=== PATIENT | female | born 1950 | race Caucasian/White ===

== ENCOUNTER 2017-03-27 05:01 | Inpatient (IN) | payer OTHER ==
[2017-03-16 14:07] VITALS: Ht 163.8 cm; Wt 121.4 kg
--- NOTE | 2017-03-16 14:45 | PAT Medication Instructions ---
Service Date Mar 16, 2017. Current Home Medication List Aripiprazole (Abilify), 5 MG PO QAM Aspirin (Aspirin), 81 MG PO QAM B-Complex Vitamins (Vitamin B Complex), 1 TAB PO QAM Celecoxib (CeleBREX), 200 MG PO BID Cholecalciferol (Vitamin D3), 1 TAB PO QAM Escitalopram Oxalate (Lexapro), 30 MG PO QAM Furosemide (Lasix), 20 MG PO QAM Hydrocodone/Acetaminophen ([place] 10/325 Tab), 1 TAB PO Q6 PRN for Pain Lidocaine (Lidoderm Patch 5%), 1 PATCH UD Lisinopril (Zestril), 5 MG PO QAM Lorazepam (Ativan), 0.5 MG PO TID PRN for Anxiety Lutein (Lutein), 10 MG PO QAM Methylprednisolone (Medrol), 8 MG PO QAM Morphine Sulfate (Morphine Sulfate Er), 30 MG PO TID [place]-3 Fatty Acids ([place] 3), 1 CAP PO QAM Pregabalin (Lyrica), 150 MG PO BID Raloxifene Hcl (Evista), 60 MG PO QAM Tocilizumab (Actemra), 1 DOSE IV MONTHLY [Methotrexate Inj], 0.8 ML SQ WK [Verapamil], 180 MG PO QAM Medication Instructions For Your Scheduled Surgery Lidocaine (Lidoderm Patch 5%), 1 PATCH UD (avoid placement near surgical site) - Check with branch operation evaluation manager for instructions: [Methotrexate Inj], 0.8 ML SQ WK Tocilizumab (Actemra), 1 DOSE IV MONTHLY - Check with surgeon for instructions: Aspirin (Aspirin), 81 MG PO QAM Celecoxib (CeleBREX), 200 MG PO BID Raloxifene Hcl (Evista), 60 MG PO QAM - Hold the following medications starting 03/17/17: [place]-3 Fatty Acids ([place] 3), 1 CAP PO QAM - Hold the following medications the morning of surgery: Lisinopril (Zestril), 5 MG PO QAM Furosemide (Lasix), 20 MG PO QAM Lutein (Lutein), 10 MG PO QAM B-Complex Vitamins (Vitamin B Complex), 1 TAB PO QAM Cholecalciferol (Vitamin D3), 1 TAB PO QAM - Take the following medications the morning of surgery with a sip of water: Methylprednisolone (Medrol), 8 MG PO QAM Pregabalin (Lyrica), 150 MG PO BID [Verapamil], 180 MG PO QAM Lorazepam (Ativan), 0.5 MG PO TID PRN for Anxiety (if needed) Hydrocodone/Acetaminophen ([place] 10/325 Tab), 1 TAB PO Q6 PRN for Pain (okay to take up to 4 hours prior to surgery if needed) Morphine Sulfate (Morphine Sulfate Er), 30 MG PO TID (okay to take up to 4 hours prior to surgery if needed) Escitalopram Oxalate (Lexapro), 30 MG PO QAM Aripiprazole (Abilify), 5 MG PO QAM - Take the following medications as scheduled the night before surgery: Pregabalin (Lyrica), 150 MG PO BID Lorazepam (Ativan), 0.5 MG PO TID PRN for Anxiety (if needed) Hydrocodone/Acetaminophen ([place] 10/325 Tab), 1 TAB PO Q6 PRN for Pain (if needed) Morphine Sulfate (Morphine Sulfate Er), 30 MG PO TID If you have any questions please call us at [phone] or [phone] or [phone]
--- NOTE | 2017-03-16 15:27 | DIAGNOSTIC IMAGING REPORT ---
CERVICAL SPINE 2 OR 3 VIEWS HISTORY:66 yearsFemalePREOP, RHEUMATOID ARTHRITIS COMPARISON: Cervical spine radiographs 12/20/2013 TECHNIQUE: Neutral, flexion and extension lateral radiographs of the cervical spine were obtained. FINDINGS: There is 3 mm anterolisthesis of C3 on C4 and 2 mm anterolisthesis C4 on C5, both of which remain fixed in both flexion and extension views. There is no evidence of instability on these images. The bones are diffusely demineralized without evidence of acute fracture or dislocation. Multilevel advanced facet arthropathy and intervertebral disc space narrowing with endplate spurring is seen throughout the cervical spine. Intervertebral disc space narrowing is most pronounced at the C5-C6 and C6-C7 levels without significant change from comparison study dated 12/20/2013. There is no prevertebral soft tissue swelling or radiopaque foreign body. IMPRESSION: 1. No acute fracture or dislocation of the cervical spine. 2. 3 mm anterolisthesis of C3 on C4 and 2 mm anterolisthesis C4 on C5 remains fixed in both flexion and extension without evidence of instability on these images. 3. Multilevel advanced intervertebral disc space narrowing and facet arthropathy without significant change from prior study dated 12/20/2013. The above report was generated using voice recognition software. It may contain grammatical, syntax or spelling errors. Electronically signed by: Luis Wen 03/16/2017 3:26 PM Dictated Date/Time: 03/16/2017 3:21 PM
--- NOTE | 2017-03-16 15:27 | DIAGNOSTIC IMAGING REPORT ---
CHEST PREADMISSION(PA/LAT) CLINICAL HISTORY: Preoperative evaluation. COMPARISON STUDY: Chest radiograph April 03, 2013. FINDINGS: Right shoulder arthroplasty is noted. There is no pneumothorax or pleural effusion. Moderate elevation/eventration of the right hemidiaphragm is unchanged. Mild cardiomegaly is noted. No evidence of pulmonary edema. There is no consolidation. IMPRESSION: 1. No acute cardiopulmonary findings. 2. Mild cardiomegaly. Electronically signed by: Guillermo Donis M.D. 03/16/2017 3:26 PM Dictated Date/Time: 03/16/2017 3:20 PM
[2017-03-16 16:20] LABS: BASO % 0.3 %; BASO ABS # 0.03 K/uL (0-0.2); COMPLETE YES; EOS % 0.6 %; HEMATOCRIT 43.5 % (37-47); IG% 0.7 %; LYMPH % 10.7 %; LYMPH ABS # 1.09 K/uL (1.2-3.4); MEAN CELL VOLUME 96.2 fL (80-100); MEAN CORPUSCULAR HGB CONC 32.2 g/dl (32-36); MEAN PLATELET VOLUME 9.8 fL (7.4-10.4); MONO % 4.1 %; NEUT % 83.6 %; PLATELET COUNT 210 K/uL (130-400); RED BLOOD COUNT 4.52 M/uL (4.2-5.4); WHITE BLOOD COUNT 10.23 K/uL (4.8-10.8)
[2017-03-16 16:24] LABS: URINE APPEARANCE CLEAR (CLEAR); URINE BILIRUBIN NEG (NEG); URINE COLOR DK YELLOW; URINE EPITHELIAL CELL AUTO >30 /lpf (0-5); URINE NITRITE NEG (NEG); URINE SPECIFIC GRAVITY 1.025 (1.000-1.030); UROBILINOGEN NEG (NEG)
[2017-03-16 16:26] LABS: MANUAL MICROSCOPIC REQUIRED? NO; REVIEW REQ? NO
[2017-03-16 16:32] LABS: PARTIAL THROMBOPLASTIN RATIO 0.8; PROTHROMBIN TIME (PATIENT) 10.7 SECONDS (9.0-12.0)
[2017-03-16 16:33] LABS: CALCIUM 9.2 mg/dl (8.5-10.1); CREATININE 0.82 mg/dl (0.60-1.20); POTASSIUM 4.2 mmol/L (3.5-5.1)
[2017-03-27] VITALS (10 sets, daily range): BP systolic 94–167; BP diastolic 55–85; PULSE 86–125; TEMP 36.3–37.5; O2SAT 91–97
[~2017-03-27] VITALS: Ht 163.8 cm; Wt 121.4 kg
[~2017-03-27 05:01] MED LIST: ABL/5 PO; ASPI1TAB83 PO; B-COTAB18 PO; CHOL1000 PO; CLB/200 PO; ESCI1TAB10 PO; FURO-85 PO; HYDR-4383 PO; LISI5TAB3 PO; LORA-741 PO; LUTE10TA PO; METH1TAB81 PO; METHOTREXATE INJ SQ; MORP1TAB12 PO; NF656; OMEG12006 PO; PREG1CAP70 PO; RALO60TA12 PO; VERAPAMIL PO; [UNRECOGNIZED DRUG - CODE] IV
[2017-03-27] MEDS ORDERED: SODIUM CHLORIDE 0.9% 1000ML 1,000 ML IV SCH ×2 (06:00→12:12)
[2017-03-27] MEDS ORDERED: LACTATED RINGER'S 1000ML 1,000 ML IV SCH (06:00)
[2017-03-27] MEDS ORDERED: CEFAZOLIN 3000 MG/65 ML D5W IV SCH (06:00)
[2017-03-27] MEDS ORDERED: ATROPINE SULFATE 0.1 MG/ML 5ML SYR IV PRN (07:00)
[2017-03-27] MEDS ORDERED: DEXAMETHASONE SOD INJ 4 MG/ML VIAL IV PRN (07:00)
[2017-03-27] MEDS ORDERED: EpHEDrine SULFATE INJ 50 MG/ML AMP IV PRN (07:00)
[2017-03-27] MEDS ORDERED: HYDROmorphone INJ 1 MG/ML SYR IV PRN (07:00)
[2017-03-27] MEDS ORDERED: FENTANYL CITRATE INJ 50 MCG/1 ML 2 ML VIAL IV PRN (07:00)
[2017-03-27] MEDS ORDERED: PROMETHAZINE HCL INJ 12.5 MG in SODIUM CHLORIDE 0.9% 50ML 50 ML IV PRN ×2 (07:00→12:15)
[2017-03-27] MEDS ORDERED: ONDANSETRON INJ 2 MG/ML 2 ML VIAL IV PRN ×2 (07:00→12:15)
[2017-03-27] MEDS ORDERED: GELATIN SPONGE SZ 100 ONE ×4 (07:03→09:58)
[2017-03-27] MEDS ORDERED: BACITRACIN 50000 UNIT VIAL ONE (07:04)
[2017-03-27] MEDS ORDERED: THROMBIN FOR SOLN 20000 UNIT KIT ONE ×3 (07:04→09:49)
[2017-03-27] MEDS ORDERED: PROPOFOL IV EMULSION 10 MG/ML 20 ML VIAL IV ONE (07:05)
[2017-03-27] MEDS ORDERED: ROCURONIUM BROMIDE 10 MG/ML 5 ML VIAL ONE (07:05)
[2017-03-27] MEDS ORDERED: BUPIVACAINE/EPINEPHRINE 0.5% MPF 1:200,000 10 ML VIAL ONE (07:05)
[2017-03-27] MEDS ORDERED: LIDOCAINE HCL 2% 2 ML VIAL (20MG/ML) ONE (07:05)
[2017-03-27] MEDS ORDERED: LARYING-O-JET KIT (LTA) ONE ×2 (07:05)
[2017-03-27] MEDS ORDERED: ONDANSETRON INJ 2 MG/ML 2 ML VIAL ONE ×2 (07:05→10:40)
[2017-03-27] MEDS ORDERED: DEXAMETHASONE SOD INJ 4 MG/ML VIAL ONE (07:05)
[2017-03-27] MEDS ORDERED: MIDAZOLAM HCL 1 MG/ML 2ML VIAL ONE (07:06)
[2017-03-27] MEDS ORDERED: FENTANYL CITRATE INJ 50 MCG/1 ML 2 ML VIAL ONE ×4 (07:06→13:06)
--- NOTE | 2017-03-27 07:12 | History and Physical ---
History & Physical Date Mar 27, 2017. Chief Complaint Back and lower extremity difficulty paresthesias numbness and tingling inability to ambulate distances inability to stand upright History of Present Illness The patient is a 66 year old female with complaints of back and lower extremity difficulties. Numbness tingling paresthesias 80 imbalance and difficulty standing upright Past Medical/Surgical History Medical history rheumatoid arthritis depression hypertension and asthma. Surgical history reverse total shoulder bilateral knee replacements reduction internal fixation of the ankle lumbar stenosis and laminectomy breast biopsies Additional History Hepatic Disease: No Endocrine Disorder: No Kidney Disease: No Hypertension: Yes Heart Disease: No Bleeding Tendencies: No Infectious Diseases: No Other: Depression and asthma Allergies Coded Allergies: No Known Allergies (Verified , `, 03/27/17) Home Medications Scheduled Aripiprazole (Abilify), 5 MG PO QAM Aspirin (Aspirin), 81 MG PO QAM B-Complex Vitamins (Vitamin B Complex), 1 TAB PO QAM Celecoxib (CeleBREX), 200 MG PO BID Cholecalciferol (Vitamin D3), 1 TAB PO QAM Escitalopram Oxalate (Lexapro), 30 MG PO QAM Furosemide (Lasix), 20 MG PO QAM Lidocaine (Lidoderm Patch 5%), 1 PATCH UD Lisinopril (Zestril), 5 MG PO QAM Lutein (Lutein), 10 MG PO QAM Methylprednisolone (Medrol), 8 MG PO QAM Morphine Sulfate (Morphine Sulfate Er), 30 MG PO TID [place]-3 Fatty Acids ([place] 3), 1 CAP PO QAM Pregabalin (Lyrica), 150 MG PO BID Raloxifene Hcl (Evista), 60 MG PO QAM Tocilizumab (Actemra), 1 DOSE IV MONTHLY [Methotrexate Inj], 0.8 ML SQ WK [Verapamil], 180 MG PO QAM Scheduled PRN Hydrocodone/Acetaminophen ([place] 10/325 Tab), 1 TAB PO Q6 PRN for Pain Lorazepam (Ativan), 0.5 MG PO TID PRN for Anxiety Physical Examination Skin: warm/dry Eyes: normal inspection ENT: normal ENT inspection Head: normocephalic Neck: supple, trachea midline Respiratory/Chest: lungs clear Cardiovascular: regular rate, rhythm Abdomen / GI: normal bowel sounds Extremities: normal inspection Addiitonal Comments: Pain with palpation over L4 5 and L5-S1 focally to getting her up for a position. Action. Pain with straight leg raising 5 over 5 strength in the lower extremities Diagnosis Lumbar spondylosis lumbar spondylolisthesis L3 4 L4 5 and degenerative scoliosis spine L1 down to the sacrum. ASA Classification: ASA Class III Plan of Treatment Laminectomy and fusion L1 through L5
[2017-03-27] MEDS ORDERED: ALBUMIN HUMAN 5% 12.5 GM/250 ML VIAL IV ONE (07:15)
[2017-03-27] MEDS ORDERED: VANCOMYCIN HCL 1000MG/20ML VIAL ONE (07:16)
[2017-03-27] MEDS ORDERED: KETAMINE HCL INJ 50 MG/ML 10 ML VIAL ONE (07:17)
[2017-03-27] MEDS ORDERED: PROMETHAZINE HCL INJ 25 MG in SODIUM CHLORIDE 0.9% 50ML 50 ML IV ONE (07:30)
[2017-03-27] MEDS ORDERED: HYDROmorphone INJ 2 MG/ML SYR/VIAL ONE (07:55)
[2017-03-27] MEDS ORDERED: EpHEDrine SULFATE 50MG/5ML SYR ONE (08:49)
[2017-03-27] MEDS ORDERED: HYDROCORTISONE SOD SUCCINATE 100 MG/2 ML VIAL ONE (08:49)
[2017-03-27] MEDS ORDERED: CEFAZOLIN SOD 1 GM VIAL ONE (11:30)
--- NOTE | 2017-03-27 11:39 | DIAGNOSTIC IMAGING REPORT ---
INTRAOPERATIVE LUMBAR SPINE SINGLE VIEW CLINICAL HISTORY: L1-5 LAMINECTOMY COMPARISON STUDY: None FINDINGS: Accurate numbering is difficult due to the limited [id number] and intraoperative fluoroscopic technique. There are pedicle screws at 5 consecutive levels with adjoining spinal rods. I suspect but am not certain this are the L1-L5 levels. A single intraoperative lateral view is provided for interpretation. 12 seconds of fluoroscopic time was utilized IMPRESSION: Intraoperative fluoroscopic spot images as described above. Electronically signed by: Chase Stahl M.D. 03/27/2017 11:38 AM Dictated Date/Time: 03/27/2017 11:35 AM
[2017-03-27] MEDS ORDERED: ESMOLOL HCL 10 MG/ML 10 ML VIAL ONE (11:40)
[2017-03-27] MEDS ORDERED: NALOXONE HCL 0.4 MG/1 ML VIAL/CARP IV PRN (12:15)
[2017-03-27] MEDS ORDERED: LORAZEPAM INJ 1 MG in SYRINGE 0 ML IV PRN (12:15)
[2017-03-27] MEDS ORDERED: METHOTREXATE SQ SCH (12:15)
[2017-03-27] MEDS ORDERED: LORAZEPAM 1 MG TAB PO PRN (12:15)
[2017-03-27] MEDS ORDERED: ACETAMINOPHEN 325 MG TAB PO PRN (12:15)
[2017-03-27] MEDS ORDERED: MAGNESIUM HYDROXIDE SUSP 30 ML UDC PO PRN (12:15)
[2017-03-27] MEDS ORDERED: METOCLOPRAMIDE HCL INJ 5 MG/ML 2 ML VIAL IV PRN (12:15)
[2017-03-27] MEDS ORDERED: LORAZEPAM 0.5 MG TAB PO PRN (12:15)
--- NOTE | 2017-03-27 12:20 | [facility] Operative Report ---
Operative Report Operative Date Mar 27, 2017. Pre-Operative Diagnosis Lumbar spondylosis lumbar spondylolisthesis L3 4 L4 5 and degenerative scoliosis spine L1 down to the sacrum. Post-Operative Diagnosis Lumbar spondylosis lumbar spondylolisthesis L3 4 L4 5 and degenerative scoliosis spine L1 down to the sacrum. Procedure(s) Performed L1-L2, L2-L3, L3-L4, L4-L5 Laminectomy and Fusion Surgeon Dr Willard Field Interviewer Surgeon(s) Juan Gomez PA-C Estimated Blood Loss 1400mL Findings Severe scoliosis severe lumbar stenosis two-level spondylolisthesis Sagittal imbalance Comorbidities morbid obesity with a BMI close to 50. So prior surgery were significant amount of revision strategies used. Specimens None as per surgeon Complication(s) None Disposition Recovery Room / PACU Indications Indications: Inability to ambulate more than 75 feet severe back pain and lower extremity difficulty. No bowel or bladder incontinence Description of Procedure Description of procedure Patient was taken to the operating room a general intubated anesthetic provided patient. He was carefully placed prone on the Alexander table off soft tissue protected. The eyes were also protected. Prior to turning we put in a Jarrett catheter. We scrubbed with Betadine prepped with ChloraPrep draped across sterile. Commence with surgery: We made a skin incision from L1 down to the sacrum. Decking soft tissue in the same plane significant amount soft tissue bleeding. We use our best efforts to have all blood vessels cauterized. We had use revision strategies and the pressure off of L5-S1 L4 5 L3 4. We did not jeopardize the nerve roots or the dura. Is able to decompress the spinal canal from L1 to L5 incident modest R moderate amount of epidural bleeding present Gavigan bleeding from bone surfaces. Then instrumented the spine and corrected her scoliotic curvature is anatomic landmarks. A C-arm guidance. The safely get pedicle screws from L1 to L5 To do complete facetectomies at L4 5 L3 4 which did not correction. We then rotated the scoliosis into lordosis honestly. He tighten down the left side than the right side. Our implants used by the [email or web address] we had near anatomic reduction reduction of the spondylolisthesis at 2 levels. Then irrigated thoroughly with approximately 1 L of fluid bone grafted the transverse processes entire area. 1 g of vancomycin powder in the bone graft we also used one gram of vancomycin powder and the soft tissue structures. Patient was closed in layers with 1 Vicryl to all and stable gone on the skin over Hemovac drain Jaime sterile dressings applied to the wound patient returned supine extubated to PACU stable. Implants used by the [employer] . Sponge and needle count correct at the close of procedure allograft no interoperative complications Surgeon Los Franklin D.O. some Juan Sandoval PAC thank you I attest to the content of the Intraoperative Record and any orders documented therein. Any exceptions are noted below.
--- NOTE | 2017-03-27 12:54 | Anesthesiology Progress Note ---
Anesthesia Post Op Note Date & Time Mar 27, 2017 at 12:53 Vital Signs Pain Intensity: 0 Vital Signs Past 12 Hours Date Time Temp Pulse Resp B/P (MAP) Pulse Ox O2 Delivery O2 Flow Rate FiO2 03/27/17 12:50 122 16 106/66 94 Oxymask 3 03/27/17 12:40 112 16 110/61 94 Oxymask 10 03/27/17 12:30 108 16 100/56 95 Oxymask 10 03/27/17 12:21 36.4 97 16 97/55 94 Oxymask 10 03/27/17 05:48 36.7 86 20 167/85 94 Room Air Notes Mental Status: alert / awake / arousable, participated in evaluation Pt Amnestic to Procedure: Yes Nausea / Vomiting: adequately controlled Pain: adequately controlled Airway Patency, RR, SpO2: stable & adequate BP & HR: stable & adequate Hydration State: stable & adequate Anesthetic Complications: no major complications apparent Still requiring supplemental O2 to maintain sats. Repeat CBC ordered. S/p 1unit PRBCs, otherwise, doing well.
[2017-03-27] MEDS ORDERED: HYDROmorphone HCL 0.5MG/ML 50 ML CASSETTE ONE (13:00)
[2017-03-27 13:42] LABS: HEMATOCRIT 39.2 % (37-47); MEAN CELL VOLUME 97.3 fL (80-100); MEAN CORPUSCULAR HEMOGLOBIN 31.3 pg (25-34); MEAN PLATELET VOLUME 9.7 fL (7.4-10.4); PLATELET COUNT 274 K/uL (130-400); RED BLOOD COUNT 4.03 M/uL (4.2-5.4); WHITE BLOOD COUNT 25.05 K/uL (4.8-10.8)
[2017-03-27 13:54] LABS: MEAN CORPUSCULAR HGB CONC 32.1 g/dl (32-36)
[2017-03-27] MEDS: SODIUM CHLORIDE 0.9% 1000ML 1,000 ML IV SCH ×2 (14:03→23:44)
[2017-03-27] MEDS ORDERED: HYDROCORTISONE SOD SUCCINATE 100 MG/2 ML VIAL IV SCH (14:30)
--- NOTE | 2017-03-27 14:35 | Medical Consult ---
Consultation Date of Consultation: Mar 27, 2017. Attending Physician: Los Willard DO Reason for Consultation: Medical management History of Present Illness This is a 66 yo F with PMHx of Rheumatoid arthritis, hypertension, asthma, and depression. She presents for an elective L1-L5 laminectomy of the spine by Dr. Willard on 03/27/17. The patient is lethargic but is easily awoken upon my exam. She wakes up and answers my questions appropriately, follows commands, and denies any chest pain, shortness breath, abdominal pain, but does report that she is having some minor lower back pain. She does not wear any oxygen at baseline. She is able to wiggle her toes and bend her knees on command. I cannot obtain a detailed history from her regarding her medications due to lethargy. Per anesthesiology note the patient received 1 unit of blood intraoperatively and albumin with a total of 500 mL for low blood pressure. Currently her BP is 100/60s. The patient lost 1.4 L of blood during surgery. She is on chronic steroids, Medrol 8 mg by mouth every morning so she has been started on stress dosing with dexamethasone 10 mg every 8 hours here. Past Medical/Surgical History Hypertension Rheumatoid arthritis Asthma Depression Lumbar spondylosis and spondylolisthesis Degenerative scoliosis of the spine from L1 to sacrum Social History Smoking Status: Never Smoker Smokeless Tobacco Use: No Alcohol Use: none Drug Use: none Marital Status: single Housing Status: lives alone Allergies Coded Allergies: No Known Allergies (Verified , `, 03/27/17) Current Inpatient Medications Current Inpatient Medications Medications (Trade) Dose Ordered Sig/Jailene Route Start Time Stop Time Status Last Admin Dose Admin Cefazolin Sodium 65 ml @ 100 mls/hr PREOP IV 03/27/17 06:00 03/27/17 18:00 Diphenhydramine HCl (Benadryl Cap) 25 mg Q6H PRN PO 03/27/17 12:15 04/26/17 12:14 Magnesium Hydroxide (Milk Of Magnesia Susp) 30 ml DAILY PRN PO 03/27/17 12:15 04/26/17 12:14 Bisacodyl (Dulcolax Supp) 10 mg DAILY PRN TN 03/28/17 06:00 04/27/17 05:59 Bisacodyl (Dulcolax Tab) 5 mg DAILY PRN PO 03/28/17 06:00 04/27/17 05:59 Polyethylene (Miralax Powder Packet) 17 gm DAILY PO 03/28/17 09:00 04/27/17 08:59 Lorazepam 1 mg/ Syringe 0.5 ml @ 1 mls/min Q6H PRN IV 03/27/17 12:15 04/26/17 12:14 Lorazepam (Ativan Tab) 1 mg Q6H PRN PO 03/27/17 12:15 04/26/17 12:14 Metoclopramide HCl (Reglan Inj) 10 mg Q6H PRN IV 03/27/17 12:15 04/26/17 12:14 Ondansetron HCl (Zofran Inj) 4 mg Q6H PRN IV 03/27/17 12:15 04/26/17 12:14 Promethazine HCl 12.5 mg/Sodium Chloride 50.5 ml @ 202 mls/hr Q6H PRN IV 03/27/17 12:15 04/26/17 12:14 Hydromorphone HCl (Dilaudid Inj) 1.5 mg Q3H PRN IV 03/28/17 08:00 04/11/17 07:59 Oxycodone/ Acetaminophen (Percocet 5-325mg Tab) 2 tab Q4H PRN PO 03/28/17 08:00 04/11/17 07:59 Hydromorphone HCl (Dilaudid Inj) 1 mg Q3H PRN IV 03/28/17 08:00 04/11/17 07:59 Oxycodone/ Acetaminophen (Percocet 5-325mg Tab) 1 tab Q4H PRN PO 03/28/17 08:00 04/11/17 07:59 Miscellaneous Information (Discontinue TRANSPORTATION DISPATCH MANAGER) 1 ea TODAY@0800 ONCE N/A 03/28/17 08:00 03/28/17 08:01 Acetaminophen (Tylenol Tab) 650 mg Q6H PRN PO 03/27/17 12:15 04/26/17 12:14 Cefazolin Sodium 2000 mg/Dextrose 60 ml @ 100 mls/hr Q8H IV 03/27/17 16:00 03/28/17 08:35 Dexamethasone Sodium Phosphate 10 mg/Syringe 2.5 ml @ 1 mls/min Q8H IV 03/27/17 16:00 03/29/17 00:03 Acetaminophen/ Hydrocodone Bitart ([place] 5/325 Tab) 2 tab Q4H PRN PO 03/28/17 08:00 04/11/17 07:59 Sodium Chloride 1,000 ml @ 80 mls/hr [id number] IV 03/27/17 12:12 04/26/17 12:11 03/27/17 14:03 80 MLS/HR Aripiprazole (Abilify Tab) 5 mg QAM PO 03/28/17 09:00 04/27/17 08:59 Aspirin (Ecotrin Tab) 81 mg QAM PO 03/28/17 09:00 04/27/17 08:59 Escitalopram Oxalate (Lexapro Tab) 30 mg QAM PO 03/28/17 09:00 04/27/17 08:59 Furosemide (Lasix Tab) 20 mg QAM PO 03/28/17 09:00 04/27/17 08:59 Lisinopril (Zestril Tab) 5 mg QAM PO 03/28/17 09:00 04/27/17 08:59 Lorazepam (Ativan Tab) 0.5 mg TID PRN PO 03/27/17 12:15 04/26/17 12:14 Methylprednisolone (Medrol Tab) 8 mg QAM PO 03/28/17 09:00 04/27/17 08:59 Pregabalin (Lyrica Cap) 150 mg BID PO 03/27/17 21:00 04/26/17 20:59 Raloxifene HCl (Evista Tab) 60 mg QAM PO 03/28/17 09:00 04/27/17 08:59 Miscellaneous Information (Order Awaiting Action) 1 ea QS N/A 03/27/17 14:30 04/26/17 14:29 Non-Formulary Medication ([Methotrexate Inj] ) 0.8 ml WK SQ 03/27/17 12:15 04/26/17 12:14 UNV Verapamil HCl ([place]-Sr Tab) 180 mg DAILY PO 03/28/17 09:00 04/27/17 08:59 Naloxone HCl (Narcan Inj) 0.1 mg Q5M PRN IV 03/27/17 12:15 03/28/17 08:00 Hydromorphone HCl (Dilaudid Sheep Boner) 25 mg PRN PRN IV 03/27/17 12:15 03/28/17 08:00 Sodium Chloride 1,000 ml @ 15 mls/hr Q24H IV 03/27/17 12:12 03/28/17 08:00 Review of Systems Constitutional: No fever, sweats or chills Eyes: No diplopia, no worsening or blurred vision ENT: normal hearing, no trouble swallowing Respiratory: No cough, sputum, dyspnea at rest or on exertion, does not wear supplemental O2 at baseline Cardiovascular: No chest pain, tightness or palpitations Abdomen: No pain, nausea, vomiting, diarrhea or constipation Musculoskeletal: No joint pain, calf pain, swelling Neurologic: No weakness, numbness/tingling, or balance problems Psychiatric: + hx of depression Back: + Low back pain Physical Exam Date Time Temp Pulse Resp B/P (MAP) Pulse Ox O2 Delivery O2 Flow Rate FiO2 03/27/17 13:56 36.6 114 18 104/60 (75) 95 Oxymask 3.0 03/27/17 13:47 96 Nasal Cannula 3.0 03/27/17 13:25 117 16 100/61 93 Oxymask 3 03/27/17 13:20 120 16 97/58 93 Oxymask 3 03/27/17 13:10 36.2 117 16 108/56 93 Oxymask 3 03/27/17 13:00 127 16 101/53 96 Oxymask 3 03/27/17 12:50 122 16 106/66 94 Oxymask 3 03/27/17 12:40 112 16 110/61 94 Oxymask 10 03/27/17 12:30 108 16 100/56 95 Oxymask 10 03/27/17 12:21 36.4 97 16 97/55 94 Oxymask 10 03/27/17 05:48 36.7 86 20 167/85 94 Room Air General: Lethargic, obese, easily awoken with verbal stimuli Head: Normocephalic, atraumatic ENT: PERRL, EOMI, no pharyngeal exudate, mucous membranes moist Chest: Clear to auscultation, on 3 L via Oximask, no adventitious breath sounds Cardiac: +Tachycardic, no murmur, no JVD, normal peripheral pulses, good capillary refill Abdominal: Obese, hypoactive BS x 4 quadrants, soft, nontender to palpation, no rebound, guarding or tenderness Extremities: Normal inspection, no peripheral edema or erythema, calfs nontender to palpation Back: Hemovac drain in place Neuro: Oriented to place and self, strength intact bilaterally and related 5/5, no motor deficits, speech is clear, no peripheral sensory deficits Laboratory Results Last 24 Hours Test 03/27/17 13:02 White Blood Count 25.05 K/uL Red Blood Count 4.03 M/uL Hemoglobin 12.6 g/dL Hematocrit 39.2 % Mean Corpuscular Volume 97.3 fL Mean Corpuscular Hemoglobin 31.3 pg Mean Corpuscular Hemoglobin Concent 32.1 g/dl RDW Standard Deviation 56.3 fL RDW Coefficient of Variation 15.8 % Platelet Count 274 K/uL Mean Platelet Volume 9.7 fL Assessment & Plan 66 yo F PMHx of Rheumatoid arthritis, hypertension, asthma, and depression. She presents for an elective L1-L5 laminectomy of the spine by Dr. Willard on . Status post L1 to L5 laminectomy and spine - Pain control per primary team- SEASONAL GREENERY BUNDLER pt was on morphine sulfate ER 30 mg TID and [place] 10/325 mg Q4H for pain - Closely monitor respiratory rate and lethargy as could possibly be due to narcotic use, consider Narcan if necessary - Bowel regimen in place - PT/OT per primary team Hypotension intraoperatively - Patient was administered 1 U PRBCs intraop secondary to 1.4 L blood loss - She also was administered albumin along with 500 mL volume - We will recheck CBC at 1700 tonight, follow with morning labs - Follow blood pressures appropriately - Stress dosing dexamethasone 10 mg Q8H with hx of RA, can DC once blood pressure stabilizes and then go back on to daily dose of Medrol 8 mg PO QAM. - SEASONAL [employer]Y BUNDLER meds lasix 20 mg QAM and lisinopril 5 mg QAM can likely be restarted tomorrow Rheumatoid arthritis - SEASONAL GREENERY BUNDLER meds includ medrol 8 mg PO QAM, [place]ista 80 mgPO QAM, tocilizumab 400 mg ever 20 days Depression - Continue Lexapro 30 mg QAM, Abilify 5 mg QAM DVT Ppx: No anticoagulation in light of spinal surgery, teds, SCDs CODE STATUS: Full code Disposition: Patient from home, PT OT eval's, discharge per primary team Reviewed: Pt Seen/Exam by Me History Physician Documentation Billing Clerk Supervision Note: I interviewed and examined the patient. Discussed with JULI English and agree with findings and plan as documented in the note. Any exceptions or clarifications are listed here: Pt seen around earlier this afternoon by myself and was still lethargic and drowsy but did wake up and answer questions, would go right back to sleep. She told me she did not take any of her AM medications before surgery today. She tells me that she was told she had ROSELINE but that she didn't want to be treated for it. Vitals reviewed-persistently tachycardic, hypoxic but improved with O2 Morbidly obese, lying in bed but then turned over on her left side with minimal assistance Reg rhythm, tachycardic, no mgr CTAB no wcr Abd +BS soft, obese, NT ND, back with dressing in place c/d/i, hemovac draining blood Ext no edema, no calf tenderness : Andrews in place drinaing clear yellow urine 66 yo female with a h/o RA,HTN, obesity, asthma, depression, chronic steroid use , here for L1-L5 laminectomy and fusion. With acute hypoxemic respiratory failure post-op and persistent tachycardia ( regular rhythm on exam), acute blood loss anemia reuqiring PRBCs, and with hypotension. -tachycardia and hypotension secondary to acute blood loss anemia and could be from stress and on chronic steroids--> stress dosed steroids with dexamethasone , repeat CBC at 1700 showed only slight drop again in hgb but no further transfusion needed at this time -follow CBC in AM -hold BP meds (lasix and lisinopril), but can give verapamil if BP improved in the AM as may also help with her tachycardia -transfuse again as needed -increased IVFs to NS 125 mls/hr for hypotension and tachycardia -keep supplemental O2 on at night (and wean off during day) for now given h/o reported ROSELINE, may need overnight oximetry prior to dc for nocturnal O2 qualification -continue MTX for RA as well (omitted above) Proph- SCDs Documented By: Flory Torres
[2017-03-27] MEDS ORDERED: METOPROLOL TARTRATE 1 MG/ML VIAL ONE (14:37)
[2017-03-27] MEDS ORDERED: HYDROCORTISONE IV 12.5 MG in SYRINGE 0 ML IV SCH (16:00)
[2017-03-27] MEDS ORDERED: METHOTREXATE SOD SC SCH (16:00)
[2017-03-27] MEDS: CEFAZOLIN IV 2,000 MG in DEXTROSE 5% 50ML 50 ML IV SCH ×2 (16:01→23:43)
[2017-03-27] MEDS: DEXAMETHASONE INJ 10 MG in SYRINGE 0 ML IV SCH ×2 (16:01→23:43)
[2017-03-27 16:10] LABS: ISTAT CREATININE 0.6 mg/dl (0.6-1.3); ISTAT HEMOGLOBIN 12.6 g/dl (12.0-16.0); ISTAT IONIZED CALCIUM 1.13 mmol/l (1.12-1.32)
[2017-03-27 17:49] LABS: HEMATOCRIT 35.5 % (37-47)
[2017-03-27] MEDS: PREGABALIN 150 MG CAP PO SCH (20:23)
[2017-03-27] MEDS: HYDROmorphone HCL 0.5MG/ML 50 ML CASSETTE IV PRN (23:13)
[2017-03-28] VITALS (11 sets, daily range): BP systolic 114–148; BP diastolic 68–76; PULSE 82–121; TEMP 36.7–37; O2SAT 91–96
[2017-03-28] MEDS ORDERED: BISACODYL 10 MG SUPP PR PRN (06:00)
[2017-03-28] MEDS ORDERED: BISACODYL 5 MG TABEC PO PRN (06:00)
[2017-03-28 06:34] LABS: HEMATOCRIT 30.7 % (37-47); MEAN CELL VOLUME 94.2 fL (80-100); MEAN CORPUSCULAR HEMOGLOBIN 31.6 pg (25-34); MEAN CORPUSCULAR HGB CONC 33.6 g/dl (32-36); MEAN PLATELET VOLUME 9.3 fL (7.4-10.4); PLATELET COUNT 203 K/uL (130-400); RED BLOOD COUNT 3.26 M/uL (4.2-5.4); WHITE BLOOD COUNT 26.66 K/uL (4.8-10.8)
[2017-03-28] MEDS: HYDROmorphone HCL 0.5MG/ML 50 ML CASSETTE IV PRN (06:50)
[2017-03-28 07:02] LABS: BUN/CREATININE RATIO 23.1 (10-20); CREATININE 1.1 mg/dl (0.60-1.20); POTASSIUM 4.7 mmol/L (3.5-5.1)
[2017-03-28 07:06] LABS: ESTIMATED AVERAGE GLUCOSE 123 mg/dl; HA1C FLAG Normal (Normal)
--- NOTE | 2017-03-28 07:25 | Clinical Documentation Query ---
CLINICAL DOCUMENTATION QUERY Internal medicine email production consultant documentation includes: "acute hypoxemic respiratory failure." Acute postoperative respiratory failure is considered a complication of care and unless otherwise stated will get coded as a complication to the procedure. In your clinical opinion is this patient being managed for: ( ) Acute postoperative pulmonary insufficiency in setting of morbid obesity, ROSELINE, and IV Sedative used for surgery (NOT A COMPLICATION) ( ) Acute postoperative respiratory failure (A COMPLICATION OF THE SURGICAL PROCEDURE) ( ) Other explanation of clinical findings (Please Explain) ( ) Unable to determine (Please Define) ( ) Need to Discuss ( ) Not Agree The medical record reflects the following clinical findings, treatment, and risk factors. Clinical Indicators: As above. Tachycardia (122), Hypoxia 80% RA, Treatment: O2 via Oxymask at 10L, internal medicine consult, Risk Factors: Age, obesity, sleep apnea, IV narcotic and sedative therapy. Please clarify and document your clinical opinion in the progress notes and discharge summary. Terms such as "probable", "suspected", "likely", "questionable", "possible", or "still to be ruled out" are acceptable. IF IN AGREEMENT, YOU MUST DOCUMENT ABOVE DIAGNOSTIC STATEMENT IN DAILY PROGRESS NOTES AND DISCHARGE SUMMARY. This document is not part of the patient's record. Thank You, Donald Mims, RN [phone]
[2017-03-28] MEDS: ARIPIprazole TAB 5 MG TAB PO SCH (07:59)
[2017-03-28] MEDS: ESCITALOPRAM OXALATE 20 MG TAB PO SCH (07:59)
[2017-03-28] MEDS: DEXAMETHASONE INJ 10 MG in SYRINGE 0 ML IV SCH ×3 (07:59→23:28)
[2017-03-28] MEDS: PREGABALIN 150 MG CAP PO SCH ×2 (07:59→20:42)
[2017-03-28] MEDS: CEFAZOLIN IV 2,000 MG in DEXTROSE 5% 50ML 50 ML IV SCH (07:59)
[2017-03-28] MEDS ORDERED: HYDROmorphone INJ 2 MG/ML SYR/VIAL IV PRN (08:00)
[2017-03-28] MEDS ORDERED: OXYCODONE/ACETAMINOPHEN 5-325 TAB PO PRN (08:00)
[2017-03-28] MEDS ORDERED: DC PCA ONE (08:00)
[2017-03-28] MEDS ORDERED: HYDROmorphone INJ 1 MG/ML SYR IV PRN (08:00)
[2017-03-28] MEDS ORDERED: HYDROCODONE/ACETAMOPHEN 5/325MG TAB PO PRN (08:00)
[2017-03-28] MEDS: METHYLPREDNISOLONE 4 MG TAB PO SCH (08:00)
[2017-03-28] MEDS: RALOXIFENE 60 MG TAB PO SCH (08:01)
[2017-03-28] MEDS: POLYETHYLENE (MIRALAX) 17 GM PACK PO SCH (08:01)
[2017-03-28] MEDS: ASPIRIN 81 MG ECTAB PO SCH (08:01)
--- NOTE | 2017-03-28 08:15 | Progress Note ---
Subjective Date of Service: Mar 28, 2017. Subjective Pt evaluation today including: conversation w/ patient Voiding: jackson catheter in place Alert oriented confusion no chest pain no shortness of breath extremity difficulty. Problem List Spinal reconstructive surgery correction of scoliosis. Morbid obesity Review of Systems Constitutional: + see HPI Eyes: + worsening of vision Musculoskeletal: + joint pain (lumbar back pain and discomfort and loss of motion) All Other Systems: Reviewed and Negative (denies any bowel bladder complaints pulmonary cardiac complaints.) Objective Vital Signs Date Time Temp Pulse Resp B/P (MAP) Pulse Ox O2 Delivery O2 Flow Rate FiO2 03/28/17 07:36 95 Mask 2.0 03/28/17 07:26 118 20 148/72 (97) 95 Mask 2.0 03/28/17 03:32 36.7 121 16 138/76 (96) 95 Oxymask 2.0 03/27/17 23:44 Oxymask 3.0 03/27/17 23:05 36.6 03/27/17 22:58 37.5 125 16 133/73 (93) 95 Oxymask 03/27/17 19:36 36.4 115 16 95/55 (68) 91 Room Air 03/27/17 16:30 97 Oxymask 3.0 03/27/17 16:26 36.3 114 16 108/69 (82) 97 Oxymask 3.0 03/27/17 15:30 36.6 116 18 94/62 (73) 93 Oxymask 3.0 03/27/17 14:29 36.6 115 18 105/69 (81) 96 Nasal Cannula 3.0 03/27/17 13:56 36.6 114 18 104/60 (75) 95 Oxymask 3.0 03/27/17 13:47 96 Nasal Cannula 3.0 03/27/17 13:25 117 16 100/61 93 Oxymask 3 03/27/17 13:20 120 16 97/58 93 Oxymask 3 03/27/17 13:10 36.2 117 16 108/56 93 Oxymask 3 03/27/17 13:00 127 16 101/53 96 Oxymask 3 03/27/17 12:50 122 16 106/66 94 Oxymask 3 03/27/17 12:40 112 16 110/61 94 Oxymask 10 03/27/17 12:30 108 16 100/56 95 Oxymask 10 03/27/17 12:21 36.4 97 16 97/55 94 Oxymask 10 Laboratory Results Last 24 Hours Test 03/27/17 10:04 03/27/17 13:02 03/27/17 17:20 03/28/17 06:15 Bedside Hemoglobin 12.6 g/dl Bedside Hematocrit 37 % Bedside Sodium 138 mEq/L Bedside Potassium 4.0 mEq/L Bedside Chloride 100 mEq/L Bedside Total CO2 27 mEq/l Anion Gap 16.0 mmol/L 14.0 mmol/L Bedside Blood Urea Nitrogen 23 mg/dl Bedside Creatinine 0.6 mg/dl Bedside Glucose (other) 145 mg/dl Bedside Ionized Calcium (Johana) 1.13 mmol/l White Blood Count 25.05 K/uL 26.66 K/uL Red Blood Count 4.03 M/uL 3.26 M/uL Hemoglobin 12.6 g/dL 11.8 g/dL 10.3 g/dL Hematocrit 39.2 % 35.5 % 30.7 % Mean Corpuscular Volume 97.3 fL 94.2 fL Mean Corpuscular Hemoglobin 31.3 pg 31.6 pg Mean Corpuscular Hemoglobin Concent 32.1 g/dl 33.6 g/dl RDW Standard Deviation 56.3 fL 54.5 fL RDW Coefficient of Variation 15.8 % 15.9 % Platelet Count 274 K/uL 203 K/uL Mean Platelet Volume 9.7 fL 9.3 fL Sodium Level 139 mmol/L Potassium Level 4.7 mmol/L Chloride Level 104 mmol/L Carbon Dioxide Level 21 mmol/L Blood Urea Nitrogen 25 mg/dl Creatinine 1.10 mg/dl Est Creatinine Clear Calc Drug Dose 63.4 ml/min Estimated GFR () 59.7 Estimated GFR (Non- 51.5 BUN/Creatinine Ratio 23.1 Random Glucose 193 mg/dl Estimated Average Glucose 123 mg/dl Hemoglobin A1c 5.9 % Calcium Level 8.0 mg/dl 25-Hydroxy Vitamin D Total 31.2 ng/ml
[2017-03-28] MEDS ORDERED: LISINOPRIL 5 MG TAB PO SCH (09:00)
[2017-03-28] MEDS ORDERED: VERAPAMIL HCL 180 MG TABCR PO SCH (09:00)
[2017-03-28] MEDS ORDERED: FUROSEMIDE 20 MG TAB PO SCH (09:00)
--- NOTE | 2017-03-28 09:02 | Clinical Documentation Query ---
CLINICAL DOCUMENTATION QUERY Internal medicine travel sales consultant documentation includes: "acute hypoxemic respiratory failure." Acute postoperative respiratory failure is considered a complication of care and unless otherwise stated will get coded as a complication to the procedure. In your clinical opinion is this patient being managed for: (x ) Acute postoperative pulmonary insufficiency in setting of morbid obesity, ROSELINE, and IV Sedative and Narcotics used for surgery (NOT A COMPLICATION) ( ) Acute postoperative respiratory failure (A COMPLICATION OF THE SURGICAL PROCEDURE) ( ) Other explanation of clinical findings (Please Explain) ( ) Unable to determine (Please Define) ( ) Need to Discuss ( ) Not Agree The medical record reflects the following clinical findings, treatment, and risk factors. Clinical Indicators: As above. Tachycardia (122), Hypoxia 80% RA, Treatment: O2 via Oxymask at 10L, internal medicine consult, Risk Factors: Age, obesity, sleep apnea, IV narcotic and sedative therapy. Please clarify and document your clinical opinion in the progress notes and discharge summary. Terms such as "probable", "suspected", "likely", "questionable", "possible", or "still to be ruled out" are acceptable. IF IN AGREEMENT, YOU MUST DOCUMENT ABOVE DIAGNOSTIC STATEMENT IN DAILY PROGRESS NOTES AND DISCHARGE SUMMARY. This document is not part of the patient's record. Thank You, Donald Mims, MIRIAM [phone]
[2017-03-28] MEDS: OXYCODONE/ACETAMINOPHEN 5-325 TAB PO PRN (10:25)
[2017-03-28] MEDS ORDERED: NURSING VERBAL MED ORDER ONE (10:30)
[2017-03-28 12:41] LABS: ARTERIAL BLOOD GAS BASE EXCESS -5.2 mEq/L (-9-1.8); ARTERIAL BLOOD GAS HCO3 20 mmol/L (19-24); ARTERIAL BLOOD GAS PO2 57 mm/Hg (80-95); ARTERIAL BLOOD GAS pH 7.33 (7.35-7.45)
[2017-03-28 12:42] LABS: ALLEN TEST POS (POS); O2 ADMINISTRATION ROOM AIR
[2017-03-28] MEDS: INSULIN ASPART 100 UNITS/ML 3 ML PEN SC SCH ×2 (17:51→20:49)
[2017-03-28 19:00] LABS: URINE APPEARANCE CLOUDY (CLEAR); URINE BILIRUBIN NEG (NEG); URINE COLOR YELLOW; URINE EPITHELIAL CELL AUTO >30 /lpf (0-5); URINE NITRITE NEG (NEG); URINE PH 6.5 (4.5-7.5); URINE SPECIFIC GRAVITY 1.012 (1.000-1.030); UROBILINOGEN NEG (NEG)
[2017-03-28 19:10] LABS: MANUAL MICROSCOPIC REQUIRED? NO; REVIEW REQ? YES
[2017-03-28] MEDS: SODIUM CHLORIDE 0.9% 1000ML 1,000 ML IV SCH (20:42)
--- NOTE | 2017-03-28 20:48 | DIAGNOSTIC IMAGING REPORT ---
CHEST ONE VIEW PORTABLE CLINICAL HISTORY: Postoperative examination. POSSIBLE PNEUMONIA COMPARISON STUDY: 03/16/2017 FINDINGS: The cardiac and mediastinal contours remain stable. There is no lobar consolidation. There is minor basilar atelectasis. There are no significant pleural fusions. There is no pneumothorax. A catheter projects over the right lung base. There are postsurgical changes of a reverse total right shoulder arthroplasty[ IMPRESSION: 1. Unspecified catheter projected over the right lung base 2. Basilar atelectasis. No evidence of lobar consolidation Electronically signed by: Chase Stahl M.D. 03/28/2017 8:47 PM Dictated Date/Time: 03/28/2017 8:45 PM
--- NOTE | 2017-03-28 21:11 | Progress Note ---
Subjective Date of Service: Mar 28, 2017. Subjective Pt evaluation today including: conversation w/ patient, physical exam, chart review, lab review, review of studies (cxr), conversation w/ nutrition consultant ( orthopedics - Dr. Willard), review of inpatient medication list Pain: back PO Intake: fair per staff Voiding: jackson catheter in place The patient has been sleepy/borderline lethargic intermittently throughout the day today. She will awaken to talk and answer questions but will fall asleep during the conversation. She has h/o ROSELINE and was on BIPAP for several years but has not used BIPAP in close to 10 years to her recollection. She denies h/o oxygen use at home. Denies dyspnea. Denies cough. Denies chest pain. No prior h/o VTE. Review of Systems Constitutional: + fatigue, No fever, No chills Respiratory: No shortness of breath Cardiac: No chest pain, No orthopnea Abdomen: + problem reported (+flatus), No pain Objective Vital Signs Date Time Temp Pulse Resp B/P (MAP) Pulse Ox O2 Delivery O2 Flow Rate FiO2 03/28/17 16:23 91 Room Air 03/28/17 15:22 36.9 95 16 114/72 (86) Room Air 03/28/17 11:38 37.0 115 19 132/69 (90) 92 Nasal Cannula 1.0 03/28/17 10:46 95 Nasal Cannula 1.0 03/28/17 10:18 113 93 03/28/17 07:36 95 Mask 2.0 03/28/17 07:26 36.9 118 20 148/72 (97) 95 Mask 2.0 03/28/17 03:32 36.7 121 16 138/76 (96) 95 Oxymask 2.0 03/27/17 23:44 Oxymask 3.0 03/27/17 23:05 36.6 03/27/17 22:58 37.5 125 16 133/73 (93) 95 Oxymask Physical Exam General Appearance: no apparent distress, + obese, + pertinent finding (fell asleep multiple times during my exam) ENT: pharynx normal Neck: no JVD Respiratory/Chest: lungs clear, no respiratory distress, no accessory muscle use Cardiovascular: no gallop, no murmur, + tachycardia Abdomen: normal bowel sounds, non tender, soft, no organomegaly Extremities: no pedal edema Neurologic/Psychiatric: + pertinent finding (sleepy; strength 5/5 x 4 exts; no facial droop; speech is clear, no dysarthria ) Laboratory Results Last 24 Hours Test 03/28/17 06:15 03/28/17 12:23 03/28/17 17:35 03/28/17 18:15 White Blood Count 26.66 K/uL Red Blood Count 3.26 M/uL Hemoglobin 10.3 g/dL Hematocrit 30.7 % Mean Corpuscular Volume 94.2 fL Mean Corpuscular Hemoglobin 31.6 pg Mean Corpuscular Hemoglobin Concent 33.6 g/dl RDW Standard Deviation 54.5 fL RDW Coefficient of Variation 15.9 % Platelet Count 203 K/uL Mean Platelet Volume 9.3 fL Sodium Level 139 mmol/L Potassium Level 4.7 mmol/L Chloride Level 104 mmol/L Carbon Dioxide Level 21 mmol/L Anion Gap 14.0 mmol/L Blood Urea Nitrogen 25 mg/dl Creatinine 1.10 mg/dl Est Creatinine Clear Calc Drug Dose 63.4 ml/min Estimated GFR () 59.7 Estimated GFR (Non- 51.5 BUN/Creatinine Ratio 23.1 Random Glucose 193 mg/dl Estimated Average Glucose 123 mg/dl Hemoglobin A1c 5.9 % Calcium Level 8.0 mg/dl 25-Hydroxy Vitamin D Total 31.2 ng/ml Arterial Blood pH 7.33 Arterial Blood Partial Pressure CO2 40 mmHg Arterial Blood Partial Pressure O2 57 mm/Hg Arterial Blood HCO3 20 mmol/L Arterial Blood Oxygen Saturation 86.0 % Arterial Blood Base Excess -5.2 mEq/L Arterial Blood Gas Delivery ROOM AIR [place] Test POS Bedside Glucose 196 mg/dl Urine Color YELLOW Urine Appearance CLOUDY Urine pH 6.5 Urine Specific [place] 1.012 Urine Protein 1+ Urine Glucose (UA) NEG Urine Ketones NEG Urine Occult Blood 3+ Urine Nitrite NEG Urine Bilirubin NEG Urine Urobilinogen NEG Urine Leukocyte Esterase LARGE Urine WBC (Auto) >30 /hpf Urine RBC (Auto) 0-4 /hpf Urine Hyaline Casts (Auto) 5-10 /lpf Urine Epithelial Cells (Auto) >30 /lpf Urine Bacteria (Auto) NEG Urine Renal Epithelial Cells >30 /lpf Urine Pathogenic Casts /lpf Urine Yeast (Auto) PRESENT Test 03/28/17 20:18 Bedside Glucose 197 mg/dl Assessment and Plan 66yo female with: 1. encephalopathy/fatigue - checked ABG - no hypercarbia but does have mod- severe hypoxemia. Unclear if current mental state is due to toxic effects from narcotics, lingering anesthesia, brewing infectious process, etc. ABG did show a mild metabolic acidosis. I spoke with Dr. Willard and recommended - try to hold narcotics as much as possible. stop other [employer]ENDANT altering meds - phenergan, ativan/benzos, etc. checked u/a - possibly suggestive of UTI - already on ancef - will follow cx. cxr w/o discrete pneumonia. If she worsens then transfer to telemetry is indicated. 2. mild acute kidney injury - u/a with blood/protein and casts c/w renal injury. Could be ATN, rhabdo, etc. Restart NS at 75cc/hr. Recheck BMP in am. 3. asthma - w/o exacerbation at this time. 4. hypoxemia - suspect obesity-hypoventilation syndrome + ROSELINE. Suspect she will need O2 at d/c. Needs repeat sleep study as outpatient. 5. HTN - hold verapamil as BP is normal or low-normal. 6. RA on steroids chronically - agree with ongoing use of stress-dose steroids. 7. pre-DM - hemoglobin a1c c/w pre-DM. FSBS high 100s. Change diet to DM diet. Add novolog sliding scale. BSG ac/hs. 8. tachycardia - unclear if due to acute blood loss anemia, pain, SIRS, PE. Monitor carefully. Low threshold to check for PE. Repeat CBC in am. 9. acute blood loss anemia - s/p 1 unit PRBCs; H/H acceptable this AM. Repeat CBC am. Will need iron. 10. DVT proph - SCDs. 11. 3+ blood on u/a but no RBCs - rhabdomyolysis? will check CPK in am. 12. h/o ROSELINE on BIPAP - will order BIPAP for tonight. I discussed Ms. Brand's case with the nocturnal hospitalist as well as the primary nurse. Continued [facility] stay due to: abnormal vital signs, inadequate oral pain control , ambulation difficulties, multiple IV medications needed Discharge planning: uncertain
[2017-03-29] VITALS (20 sets, daily range): BP systolic 113–152; BP diastolic 62–79; PULSE 78–101; TEMP 36.2–36.8; O2SAT 91–98
[2017-03-29] MEDS: OXYCODONE/ACETAMINOPHEN 5-325 TAB PO PRN ×3 (03:13→15:49)
[2017-03-29 07:09] LABS: BUN/CREATININE RATIO 27.7 (10-20); CALCIUM 8.4 mg/dl (8.5-10.1); CREATININE 0.82 mg/dl (0.60-1.20); POTASSIUM 4.4 mmol/L (3.5-5.1)
[2017-03-29 07:19] LABS: HEMATOCRIT 25.8 % (37-47); MEAN CELL VOLUME 93.1 fL (80-100); MEAN CORPUSCULAR HEMOGLOBIN 30.3 pg (25-34); MEAN CORPUSCULAR HGB CONC 32.6 g/dl (32-36); MEAN PLATELET VOLUME 9.3 fL (7.4-10.4); PLATELET COUNT 195 K/uL (130-400); RED BLOOD COUNT 2.77 M/uL (4.2-5.4); WHITE BLOOD COUNT 25.02 K/uL (4.8-10.8)
[2017-03-29] MEDS: PREGABALIN 150 MG CAP PO SCH ×2 (07:24→20:46)
[2017-03-29] MEDS: ARIPIprazole TAB 5 MG TAB PO SCH (07:26)
[2017-03-29] MEDS: ASPIRIN 81 MG ECTAB PO SCH (07:26)
[2017-03-29] MEDS: RALOXIFENE 60 MG TAB PO SCH (07:26)
[2017-03-29] MEDS: POLYETHYLENE (MIRALAX) 17 GM PACK PO SCH (07:26)
[2017-03-29] MEDS: METHYLPREDNISOLONE 4 MG TAB PO SCH (07:26)
[2017-03-29] MEDS: ESCITALOPRAM OXALATE 20 MG TAB PO SCH (07:26)
--- NOTE | 2017-03-29 08:11 | Progress Note ---
Subjective Date of Service: Mar 29, 2017. Subjective Pt evaluation today including: conversation w/ patient Patient alert oriented as back pain and no lower extremity difficulty denies chest pain shortness of breath. Problem List Flex spinal reconstructive surgery correction of scoliosis and fusion L1 to L5 also has significant amount of comorbidities Review of Systems Constitutional: + see HPI All Other Systems: Reviewed and Negative Objective Vital Signs Date Time Temp Pulse Resp B/P (MAP) Pulse Ox O2 Delivery O2 Flow Rate FiO2 03/29/17 08:04 98 Room Air 03/29/17 08:00 36.4 88 16 152/74 (100) 98 Room Air 03/29/17 04:03 96 Nasal Cannula 2.0 03/29/17 02:00 CPAP 2.0 03/28/17 23:45 36.7 102 18 144/76 (98) 96 Room Air 03/28/17 21:44 82 95 2.0 03/28/17 20:25 Room Air 03/28/17 16:23 91 Room Air 03/28/17 15:22 36.9 95 16 114/72 (86) Room Air 03/28/17 11:38 37.0 115 19 132/69 (90) 92 Nasal Cannula 1.0 03/28/17 10:46 95 Nasal Cannula 1.0 03/28/17 10:18 113 93 Laboratory Results Last 24 Hours Test 03/28/17 12:23 03/28/17 17:35 03/28/17 18:15 03/28/17 20:18 Arterial Blood pH 7.33 Arterial Blood Partial Pressure CO2 40 mmHg Arterial Blood Partial Pressure O2 57 mm/Hg Arterial Blood HCO3 20 mmol/L Arterial Blood Oxygen Saturation 86.0 % Arterial Blood Base Excess -5.2 mEq/L Arterial Blood Gas Delivery ROOM AIR [place] Test POS Bedside Glucose 196 mg/dl 197 mg/dl Urine Color YELLOW Urine Appearance CLOUDY Urine pH 6.5 Urine Specific [place] 1.012 Urine Protein 1+ Urine Glucose (UA) NEG Urine Ketones NEG Urine Occult Blood 3+ Urine Nitrite NEG Urine Bilirubin NEG Urine Urobilinogen NEG Urine Leukocyte Esterase LARGE Urine WBC (Auto) >30 /hpf Urine RBC (Auto) 0-4 /hpf Urine Hyaline Casts (Auto) 5-10 /lpf Urine Epithelial Cells (Auto) >30 /lpf Urine Bacteria (Auto) NEG Urine Renal Epithelial Cells >30 /lpf Urine Pathogenic Casts /lpf Urine Yeast (Auto) PRESENT Test 03/29/17 06:09 White Blood Count 25.02 K/uL Red Blood Count 2.77 M/uL Hemoglobin 8.4 g/dL Hematocrit 25.8 % Mean Corpuscular Volume 93.1 fL Mean Corpuscular Hemoglobin 30.3 pg Mean Corpuscular Hemoglobin Concent 32.6 g/dl RDW Standard Deviation 54.5 fL RDW Coefficient of Variation 16.0 % Platelet Count 195 K/uL Mean Platelet Volume 9.3 fL Sodium Level 138 mmol/L Potassium Level 4.4 mmol/L Chloride Level 104 mmol/L Carbon Dioxide Level 30 mmol/L Anion Gap 4.0 mmol/L Blood Urea Nitrogen 23 mg/dl Creatinine 0.82 mg/dl Est Creatinine Clear Calc Drug Dose 85.1 ml/min Estimated GFR () 85.2 Estimated GFR (Non- 73.5 BUN/Creatinine Ratio 27.7 Random Glucose 170 mg/dl Calcium Level 8.4 mg/dl Total Creatine Kinase 230 U/L Assessment and Plan Patient is alert oriented this morning is making slow steady progress. He had a difficult day which was just yesterday by think she is improved. She is alert oriented no unusual complaints. Assessment major spinal reconstructive surgery. Postop anemia from blood loss. Multiple other comorbidities including morbid obesity Plan: Try to get the patient out of bed to chair and ambulating we can accomplish approximate 10-20 feet that is wonderful. Dressing has been changed. Were hoping for rehabilitation placement tomorrow March 30 facility near her home. Continued [facility] stay due to: abnormal vital signs, inadequate oral pain control , ambulation difficulties, multiple IV medications needed Discharge planning: rehab hospital, uncertain
[2017-03-29] MEDS: INSULIN ASPART 100 UNITS/ML 3 ML PEN SC SCH ×4 (08:28→20:51)
[2017-03-29] MEDS: SODIUM CHLORIDE 0.9% 1000ML 1,000 ML IV SCH (08:59)
[2017-03-29] MEDS ORDERED: NURSING VERBAL MED ORDER ONE ×3 (10:45→17:30)
[2017-03-29] MEDS ORDERED: HYDROmorphone INJ 0.5 MG/0.5 ML SYR ONE (11:03)
--- NOTE | 2017-03-29 11:46 | Hospitalist Progress Note ---
Hospitalist Progress Note Date of Service Mar 29, 2017. (Shawanda Hill ., PA-C) Subjective Pt evaluation today including: conversation w/ patient, physical exam, chart review, lab review, review of inpatient medication list Voiding: no voiding problems, no incontinence Patient states she is feeling well. Sitting in bedside chair. Oriented x2 to person/place- unsure of date. Admits to 7/10 lower back pain. +flatus- No BM postop. CPAP setup last night- patient reports she tried to wear machine, but very uncomfortable. Denies SOB. Currently on RA w/ adequate O2 sats. Patient denies any fever, chills, sweats, lightheadedness, dizziness, vision changes, CP, palpitations, edema, SOB, wheezing, cough, abdominal pain, nausea, vomiting, diarrhea, urinary symptoms, melena, numbness/tingling, weakness, anxiety/depression, active bleeding, or new skin discoloration/changes. (Shawanda Hill ., PA-C) Medications Current Inpatient Medications Medications (Trade) Dose Ordered Sig/Jailene Route Start Time Stop Time Status Last Admin Dose Admin Magnesium Hydroxide (Milk Of Magnesia Susp) 30 ml DAILY PRN PO 03/27/17 12:15 04/26/17 12:14 Bisacodyl (Dulcolax Supp) 10 mg DAILY PRN DE 03/28/17 06:00 04/27/17 05:59 Bisacodyl (Dulcolax Tab) 5 mg DAILY PRN PO 03/28/17 06:00 04/27/17 05:59 Polyethylene (Miralax Powder Packet) 17 gm DAILY PO 03/28/17 09:00 04/27/17 08:59 03/29/17 07:26 17 GM Metoclopramide HCl (Reglan Inj) 10 mg Q6H PRN IV 03/27/17 12:15 04/26/17 12:14 Ondansetron HCl (Zofran Inj) 4 mg Q6H PRN IV 03/27/17 12:15 04/26/17 12:14 03/29/17 09:06 4 MG Hydromorphone HCl (Dilaudid Inj) 1.5 mg Q3H PRN IV 03/28/17 08:00 04/11/17 07:59 Oxycodone/ Acetaminophen (Percocet 5-325mg Tab) 2 tab Q4H PRN PO 03/28/17 08:00 04/11/17 07:59 03/29/17 08:29 2 TAB Hydromorphone HCl (Dilaudid Inj) 1 mg Q3H PRN IV 03/28/17 08:00 04/11/17 07:59 03/28/17 08:05 1 MG Oxycodone/ Acetaminophen (Percocet 5-325mg Tab) 1 tab Q4H PRN PO 03/28/17 08:00 04/11/17 07:59 Acetaminophen (Tylenol Tab) 650 mg Q6H PRN PO 03/27/17 12:15 04/26/17 12:14 03/28/17 23:28 650 MG Acetaminophen/ Hydrocodone Bitart ([place] 5/325 Tab) 2 tab Q4H PRN PO 03/28/17 08:00 04/11/17 07:59 Aripiprazole (Abilify Tab) 5 mg QAM PO 03/28/17 09:00 04/27/17 08:59 03/29/17 07:26 5 MG Aspirin (Ecotrin Tab) 81 mg QAM PO 03/28/17 09:00 04/27/17 08:59 03/29/17 07:26 81 MG Escitalopram Oxalate (Lexapro Tab) 30 mg QAM PO 03/28/17 09:00 04/27/17 08:59 03/29/17 07:26 30 MG Methylprednisolone (Medrol Tab) 8 mg QAM PO 03/28/17 09:00 04/27/17 08:59 03/29/17 07:26 8 MG Pregabalin (Lyrica Cap) 150 mg BID PO 03/27/17 21:00 04/26/17 20:59 03/29/17 07:24 150 MG Raloxifene HCl (Evista Tab) 60 mg QAM PO 03/28/17 09:00 04/27/17 08:59 03/29/17 07:26 60 MG Miscellaneous Information (Order Awaiting Action) 1 ea QS N/A 03/27/17 14:30 04/26/17 14:29 Verapamil HCl (Calan-Sr Tab) 180 mg DAILY PO 03/28/17 09:00 04/27/17 08:59 Future Hold 03/28/17 08:00 180 MG Methotrexate 20 mg/Syringe 0.8 ml @ 1 mls/min Mo@0900 SC 03/27/17 16:00 04/26/17 15:59 03/27/17 16:27 1 MLS/MIN Insulin Aspart (novoLOG ASPART) SLIDING SCALE G... ACHS SC 03/28/17 17:15 04/27/17 17:14 03/29/17 08:28 1 UNITS Sodium Chloride 1,000 ml @ 75 mls/hr [id number] IV 03/28/17 20:00 04/27/17 19:59 03/29/17 08:59 75 MLS/HR Miscellaneous Information (Nursing Verbal Med Order) 1 ea ONE ONCE N/A 03/29/17 10:45 03/29/17 10:46 UNV (Shawanda Hill, PA-C) Objective Vital Signs Date Time Temp Pulse Resp B/P (MAP) Pulse Ox O2 Delivery O2 Flow Rate FiO2 03/29/17 10:20 36.5 91 18 136/79 92 03/29/17 10:01 96 145/79 (101) 03/29/17 09:50 36.8 91 20 113/75 03/29/17 09:35 36.6 93 20 137/79 96 03/29/17 09:19 36.2 101 20 122/78 03/29/17 08:04 98 Room Air 03/29/17 08:00 36.4 88 16 152/74 (100) 98 Room Air 03/29/17 04:03 96 Nasal Cannula 2.0 03/29/17 02:00 CPAP 2.0 03/28/17 23:45 36.7 102 18 144/76 (98) 96 Room Air 03/28/17 21:44 82 95 2.0 03/28/17 20:25 Room Air 03/28/17 16:23 91 Room Air 03/28/17 15:22 36.9 95 16 114/72 (86) Room Air 03/28/17 11:38 37.0 115 19 132/69 (90) 92 Nasal Cannula 1.0 (Shawanda Hill, PA-C) Physical Exam General Appearance: no apparent distress, + obese Eyes: normal inspection, PERRL ENT: hearing grossly normal Neck: supple Respiratory/Chest: lungs clear, no respiratory distress, no accessory muscle use Cardiovascular: regular rate, rhythm Abdomen: normal bowel sounds, non tender, soft Extremities: no pedal edema, no calf tenderness Neurologic/Psychiatric: alert, normal mood/affect, + disoriented (to time ) Skin: normal color, warm/dry, no rash (Shawanda Hill, RIOS) Laboratory Results Last 24 Hours Test 03/28/17 12:23 03/28/17 17:35 03/28/17 18:15 03/28/17 20:18 Arterial Blood pH 7.33 Arterial Blood Partial Pressure CO2 40 mmHg Arterial Blood Partial Pressure O2 57 mm/Hg Arterial Blood HCO3 20 mmol/L Arterial Blood Oxygen Saturation 86.0 % Arterial Blood Base Excess -5.2 mEq/L Arterial Blood Gas Delivery ROOM AIR Francisco Test POS Bedside Glucose 196 mg/dl 197 mg/dl Urine Color YELLOW Urine Appearance CLOUDY Urine pH 6.5 Urine Specific [place] 1.012 Urine Protein 1+ Urine Glucose (UA) NEG Urine Ketones NEG Urine Occult Blood 3+ Urine Nitrite NEG Urine Bilirubin NEG Urine Urobilinogen NEG Urine Leukocyte Esterase LARGE Urine WBC (Auto) >30 /hpf Urine RBC (Auto) 0-4 /hpf Urine Hyaline Casts (Auto) 5-10 /lpf Urine Epithelial Cells (Auto) >30 /lpf Urine Bacteria (Auto) NEG Urine Renal Epithelial Cells >30 /lpf Urine Pathogenic Casts /lpf Urine Yeast (Auto) PRESENT Test 03/29/17 06:09 03/29/17 08:03 White Blood Count 25.02 K/uL Red Blood Count 2.77 M/uL Hemoglobin 8.4 g/dL Hematocrit 25.8 % Mean Corpuscular Volume 93.1 fL Mean Corpuscular Hemoglobin 30.3 pg Mean Corpuscular Hemoglobin Concent 32.6 g/dl RDW Standard Deviation 54.5 fL RDW Coefficient of Variation 16.0 % Platelet Count 195 K/uL Mean Platelet Volume 9.3 fL Sodium Level 138 mmol/L Potassium Level 4.4 mmol/L Chloride Level 104 mmol/L Carbon Dioxide Level 30 mmol/L Anion Gap 4.0 mmol/L Blood Urea Nitrogen 23 mg/dl Creatinine 0.82 mg/dl Est Creatinine Clear Calc Drug Dose 85.1 ml/min Estimated GFR () 85.2 Estimated GFR (Non- 73.5 BUN/Creatinine Ratio 27.7 Random Glucose 170 mg/dl Calcium Level 8.4 mg/dl Total Creatine Kinase 230 U/L Bedside Glucose 170 mg/dl (Shawanda Hill, RIOS) Assessment and Plan 66 yo F PMHx of Rheumatoid arthritis, hypertension, asthma, and depression. She presents for an elective L1-L5 laminectomy of the spine by Dr. Willard on . s/p L1 to L5 laminectomy and spine by Dr. Willard on 03/27: - Admitted to med/surg - Lyrica 150 mg BID - Surgical management, pain management, DVT prophylaxis and PT/OT as per primary team -- Pain control per primary team- IV Dilaudid, Percocet, [place], Tylenol- limit pain medications due to drowsiness -- IV Dexamethasone 2.5 mg x5 doses -- Bowel regimen- Dulcolax, Reglan, MiraLAX, Milk of Mag Encephalopathy/fatigue, ?secondary to narcotics, lingering anesthesia, or less likely infectious process- IMPROVING: - Checked ABG- metabolic acidosis- O2 protocol, CPAP - Discontinued Phenergan, Ativan/benzos - UCx negative- already on IV Ancef 2,000 mg x3 doses 03/27-03/28 - CXR on 03/28- Basilar atelectasis. No evidence of lobar consolidation- encouraged incentive spirometer - CPK mildly elevated at 230- continue IVF Acute blood loss anemia, secondary to laminectomy- transfused a total of 3 U PRBCs: - Transfused 1 U PRBCs intraoperatively on 03/27 - Transfused 2 U PRBCs on 03/29 due to hgb of 8/4 by surgical team - Following H&H HTN w/ hypotension intraoperatively- STABLE: - Verapamil 180 mg daily, Lasix 20 mg daily, and Lisinopril 5 mg daily held - IV Dexamethasone Mild tachycardia, likely secondary to acute blood loss anemia, pain, and holding CCB: - EKG w/ no acute changes - IVF - Transfusions as above - Continue to monitor Leukocytosis, likely secondary to IV steroids/stress- IMPROVING: Continue to follow CBC and monitor for s/s of infection Mild acute kidney injury- RESOLVED: Follow PRP Rheumatoid arthritis: Continue Medrol 8 mg QAM, Evista 80 mg QAM, Tocilizumab 400 mg every 20 days, Methotrexate 0.8 SQ WKLY on Mon Depression: Continue Lexapro 30 mg QAM, Abilify 5 mg QAM Pre-diabetic- hA1C= 5.9%: - T2DM - BSG ACHS w/ sliding insulin scale Mild hypoxemia, ?secondary to obesity-hypoventilation syndrome + ROSELINE: - O2 protocol, wean as tolerated - CPAP - Recommend outpatient sleep study h/o asthma- STABLE DVT Prophylaxis: Mechanical w/ TEDs/SCDs, ASA 81 mg daily as per primary team Code Status: LEVEL I, FULL Disposition: Discharge as per primary team- planning for acute rehab (Shawanda Hill ., PA-C) Attending Attestation: Pt seen/examined, chart reviewed, care plan d/w JULI Hill. I agree w/ the hernandez components of her documentation. Pt with back pain but otherwise "feels much better." More awake and alert today; not falling asleep mid-sentence or excessive fatigue. Denies dyspnea. +flatus, no BM yet. Plan is hopefully rehab at [facility]. VSS afebrile o2 sats low-normal in RA - desats to <90% with sleep gen - obese, NAD, much more awake/alert today mouth - MMM neck - no JVD heart - RRR, s1, s2 lungs - CTA b/l abd - soft ext - pulses 2+ b/l A/P: 1. acute postoperative pulmonary insufficiency in setting of morbid obesity, known ROSELINE, & IV narcotics - resolved. 2. h/o ROSELINE - dx with such 10 years ago but never used BIPAP/CPAP. Will obtain overnight oximetry study to see if we can qualify her for nocturnal O2 at home. 3. acute blood loss anemia - agree with Tx of 2 units today. CBC in am. 4. tachycardia - due to #3 - resolved. 5. FEN - can d/c fluids, labs are stable, eating well. 6. leukocytosis - suspect due to stress from surgery and stress-dose IV steroids. CBC in am. No UTI on urine cx; cxr w/o infiltrates; no fever. progressing nicely will cont to follow Dillan Warner MD (Dillan Warner MD)
[2017-03-29] MEDS: HYDROmorphone INJ 0.5 MG/0.5 ML SYR IV PRN (17:43)
[2017-03-30] MEDS: OXYCODONE/ACETAMINOPHEN 5-325 TAB PO PRN ×3 (00:39→17:07)
[2017-03-30] MEDS: HYDROmorphone INJ 0.5 MG/0.5 ML SYR IV PRN ×2 (03:53→09:02)
[2017-03-30 05:58] LABS: MEAN CELL VOLUME 91.5 fL (80-100); MEAN CORPUSCULAR HEMOGLOBIN 31.4 pg (25-34); MEAN CORPUSCULAR HGB CONC 34.3 g/dl (32-36); PLATELET COUNT 152 K/uL (130-400); RED BLOOD COUNT 3.06 M/uL (4.2-5.4); WHITE BLOOD COUNT 17.14 K/uL (4.8-10.8)
[2017-03-30 06:31] LABS: BUN/CREATININE RATIO 33.6 (10-20); CREATININE 0.67 mg/dl (0.60-1.20); POTASSIUM 4.3 mmol/L (3.5-5.1)
[2017-03-30 07:30] VITALS: BP 134/78; PULSE 69; TEMP 36.6; O2SAT 90
[2017-03-30] MEDS: INSULIN ASPART 100 UNITS/ML 3 ML PEN SC SCH ×3 (08:00→17:15)
[2017-03-30] MEDS: PREGABALIN 150 MG CAP PO SCH (08:14)
[2017-03-30] MEDS: METHYLPREDNISOLONE 4 MG TAB PO SCH (08:14)
[2017-03-30] MEDS: ESCITALOPRAM OXALATE 20 MG TAB PO SCH (08:14)
[2017-03-30] MEDS: ARIPIprazole TAB 5 MG TAB PO SCH (08:14)
[2017-03-30] MEDS: ASPIRIN 81 MG ECTAB PO SCH (08:14)
[2017-03-30] MEDS: POLYETHYLENE (MIRALAX) 17 GM PACK PO SCH (08:14)
[2017-03-30] MEDS: RALOXIFENE 60 MG TAB PO SCH (08:15)
[2017-03-30 08:53] VITALS: O2SAT 90
--- NOTE | 2017-03-30 10:37 | Discharge Instructions ---
Discharge Instructions Date of Service Mar 30, 2017. Admission Reason for Admission: Spondylosis Discharge Discharge Diagnosis / Problem: SAME ABOVE Discharge Goals Goal(s): Decrease discomfort, Improve function Activity Recommendations Activity Limitations: as noted below Lifting Limitations: until after follow-up appointment Exercise/Sports Limitations: until after follow-up appointment Shower/Bathe: keep incision dry . Instructions / Follow-Up Instructions / Follow-Up MEDICATIONS: Please take your prescriptions as instructed at your pre-op appointment. SPECIAL CARE: The following information is intended to answer some of the common questions and concerns regarding your surgery. Each patient is an individual and receives individual counselling throughout the course of treatment, from diagnosis to surgery all the way through recovery. What follows is not an exhaustive list, but should be a useful guide to some of the common questions and concerns patients have regarding their surgeries. These are not provided to keep you from calling us; rather, they give you something accurate and concrete to reference as you recover from your procedure. If you need us, we are available to you. As always, if you are not sure about something, call us at [phone]. MEDICAL EMERGENCIES: For these conditions, call 911 or go to your local hospital-based Emergency Department - not [facility] or equivalent. * Paralysis * Severe chest pain or difficulty breathing * Swelling or redness of either leg Spine procedures can be rather complex and though complications are rare, they do occur. In such cases, effective advice regarding emergency situations cannot always be addressed over the telephone. You may be referred to the emergency department for more effective management of your problem. Activity Limitations: It is important to give your body time to heal, so please limit your activities : * In general, don't do anything that moves your spine too much. You should avoid contact sports, twisting or heavy lifting while you recover. * 5-10 pounds is all you should attempt to lift. * You should not plan on driving for approximately 3 weeks and you should avoid traveling more than 30-45 minutes at a time. Longer trips should be broken down with walking breaks spaced appropriately. * Physical therapy is not usually required. * Walking and good posture practices will help you recover and regain your function. * Avoid straining or sudden changes in position. * In general, the goal is to take it easy and recover. Don't cause any new problems. Just relax. Showers: * Do not take a bath, use a Jacuzzi or hot tub or otherwise submerge your incision. * It is usually safe to take a shower 4-5 days after your surgery. * Your incision does not require any special creams or ointments. * Simply clean it with soap and water, dry and re-dress with a clean bandage afterwards. Incision: * Keep incision clean, dry and protected until your first follow-up appointment. * Some amount of drainage and redness is normal. Any drainage should be fairly clear and not have a foul odor. * If you feel anything is wrong or you have excessive drainage, please call us. * Your stitches and trish will be removed 10-14 days after your surgery. At the time of your first post-op visit. * Neck surgeries are typically closed with a suture underneath the skin. The steri-strips over the incision should be maintained until we see you in the office. Bracing: * You may be provided with a back or neck brace to encourage good posture and prevent injury. It will remind you not to do too much as you heal and will alert others to the fact that you have had a surgery. * Back braces may be removed for showers and when you are resting at home. They must be worn when you are walking around for any period of time or for travel. * For neck surgery, you will likely be provided with two cervical collars. The soft collar ([place] or foam rubber) is worn most commonly throughout the day and while sleeping. The plastic collar (provided at the hospital) is for showering/bathing. * Except while eating, collars should remain in place. More specifically, bracing is provided for a purpose and should be worn. * Please obtain your brace or collars prior to your operation and bring them to the hospital with you on the day of surgery. * You should also bring your collars to your post-op appointment with Dr. Willard. You should always take good care of your body and practice healthy habits, especially following surgery. You should: * Follow your doctor's treatment plan * Sit and stand properly with good posture (ears over shoulders, shoulders over hips) Don't slouch * Learn to lift correctly * Exercise regularly (low-impact aerobic exercise is especially good, but check with your doctor first) * Generally, be up and walking for 5-10 minutes at a time at least 3-4 times per day from the day you get home * Increasing walking to tolerance until you can walk for 20-30 minutes at a time * Attain and maintain a healthy body weight * Eat healthy foods ( a well-balanced, low-fat diet rich in fruits and vegetables) and get enough calcium * Avoid excessive use of alcohol When to call our office - If you notice any of the following: * Increased pain not relieve by pain medicine * Fevers greater then 100 degrees F, chills or flu symptoms * Increased redness around incision * Drainage from the incision that is not clear * Any foul smelling drainage * Swelling or fluid collection beneath the skin Miscellaneous: * In the hospital, you may be given a walker or cane for support while walking. These are temporary needs and are intended to prevent injuries due to falls. You may discontinue them when you feel strong and steady enough on your feet. * Sleep in a comfortable position. We find that many patients find a lounge chair or recliner with several pillows to be beneficial in the early post-operative period. * The support stockings should be used for 7-10 days and may be discontinued when you are back to walking more and conducting usual household activities. No problem is insignificant. We are here to help you and get you well. Contact us at [phone]. Definitions: Foraminotomy: If part of the disc or a bone spur (osteophyte) is pressing on a nerve as it leaves the vertebra (through an exit called the foramen), a foraminotomy may be done. Otomy means "to make an opening." A foraminotomy is making the opening of the foramen larger, so the nerve can exit without being compressed. Laminotomy: Similar to the foraminotomy, a laminotomy makes a larger opening, this time in your bony plate protecting your spinal canal and spinal cord (the lamina). The lamina may be pressing on your nerve, so the surgeon may make more room for the nerves using a laminotomy. Laminectomy: Sometimes, a laminotomy is not sufficient. The surgeon may need to remove all or part of the lamina. This procedure is called a laminectomy. This can often be done at many levels without any harmful effects. Current Hospital Diet Patient's current hospital diet: Diabetes Type 2 Diet Discharge Diet Recommended Diet: Regular Diet Procedures Procedures Performed: L1-L2, L2-L3, L3-L4, L4-L5 Laminectomy and Fusion Pending Studies Studies pending at discharge: no Laboratory Results Hemoglobin A1c Test 03/28/17 06:15 Range/Units Estimated Average Glucose 123 mg/dl Hemoglobin A1c 5.9 H 4.5-5.6 % Medical Emergencies . Who to Call and When: Medical Emergencies: If at any time you feel your situation is an emergency, please call 911 immediately. . Non-Emergent Contact Non-Emergency issues call your: Primary Care Provider . "Provider Documentation" section prepared by Juan Gomez. . VTE Core Measure Inpt VTE Proph given/why not?: Raquel Chowdhury, SCD's
--- NOTE | 2017-03-30 10:42 | Discharge Summary ---
Orthopedic Discharge Summary Admission Date/Reason Mar 27, 2017 at 07:17 Spondylosis. 30 scoliosis two-level spondylolisthesis. Spinal instability Discharge Date/Disposition Mar 30, 2017 Rehab Diagnosis Principal Diagnosis: Severe scoliosis spondylolisthesis correction of curvature and fusion L1 to L5. Secondary Diagnoses/Problems: Secondary diagnoses of multiple medical problems including obesity hypertension Procedure(s) Performed Lumbar laminectomy L1 to L5 correction of a 20/30 degrees scoliotic curvature reduction of spondylolisthesis fusion L1 to L5 Consultations Medical management Admission Physical Exam As per Admitting History & Physical. Hospital Course Patient was admitted to my service on Monday 4 days ago after very significant spinal surgery reduction of spondylolisthesis correction of scoliosis and fusion L1 to L5 was of barely ambulatory. He had her up out of bed to chair day 1 and day 2 postoperatively she was able to and ambulate 5-10 feet she felt better pain was decreased. She had an episode of shortness of breath and increased white cell count she may have been from the stress of surgery. Also was anemic secondary to blood loss anemia from the rigorous surgery required 2 units of packed RBCs. As of this morning the she is improved stable alert oriented no chest pain shortness of breath. She is stable for rehabilitation placement. Try to get her to rehabilitation later on today up on her feet only walking 10-20 feet. Her Her wounds be kept clean and dry at all times protected with crit dressings. Our graft I should see her back in the office in approximately 12 days post discharge her graft brace is to be worn when she is up and ambulatory when she is sitting she does not need the brace does not need the brace which she is supine resting in bed. Please call for any problems should arise at orthopedics [phone]. Discharge Instructions Please refer to the electronic Patient Visit Report (Discharge Instructions) for additional information.
--- NOTE | 2017-03-30 12:19 | Hospitalist Progress Note ---
Hospitalist Progress Note Date of Service Mar 30, 2017. Subjective Pt evaluation today including: conversation w/ patient, physical exam, chart review, lab review, review of inpatient medication list Voiding: no voiding problems, no incontinence Patient states she is feeling well. Oriented x3. Eating and drinking OK. +flatus, no BM postop yet. Pain still present, but better controlled. Patient denies any fever, chills, sweats, lightheadedness, dizziness, vision changes, CP, palpitations, edema, SOB, wheezing, cough, abdominal pain, nausea, vomiting, diarrhea, urinary symptoms, melena, numbness/tingling, weakness, anxiety/depression, active bleeding, or new skin discoloration/changes. Medications Current Inpatient Medications Medications (Trade) Dose Ordered Sig/Jailene Route Start Time Stop Time Status Last Admin Dose Admin Magnesium Hydroxide (Milk Of Magnesia Susp) 30 ml DAILY PRN PO 03/27/17 12:15 04/26/17 12:14 Bisacodyl (Dulcolax Supp) 10 mg DAILY PRN [place] 03/28/17 06:00 04/27/17 05:59 Bisacodyl (Dulcolax Tab) 5 mg DAILY PRN PO 03/28/17 06:00 04/27/17 05:59 Polyethylene (Miralax Powder Packet) 17 gm DAILY PO 03/28/17 09:00 04/27/17 08:59 03/30/17 08:14 17 GM Metoclopramide HCl (Reglan Inj) 10 mg Q6H PRN IV 03/27/17 12:15 04/26/17 12:14 Ondansetron HCl (Zofran Inj) 4 mg Q6H PRN IV 03/27/17 12:15 04/26/17 12:14 03/29/17 09:06 4 MG Hydromorphone HCl (Dilaudid Inj) 1.5 mg Q3H PRN IV 03/28/17 08:00 04/11/17 07:59 Oxycodone/ Acetaminophen (Percocet 5-325mg Tab) 2 tab Q4H PRN PO 03/28/17 08:00 04/11/17 07:59 03/30/17 00:39 2 TAB Hydromorphone HCl (Dilaudid Inj) 1 mg Q3H PRN IV 03/28/17 08:00 04/11/17 07:59 03/28/17 08:05 1 MG Oxycodone/ Acetaminophen (Percocet 5-325mg Tab) 1 tab Q4H PRN PO 03/28/17 08:00 04/11/17 07:59 Acetaminophen (Tylenol Tab) 650 mg Q6H PRN PO 03/27/17 12:15 04/26/17 12:14 03/28/17 23:28 650 MG Acetaminophen/ Hydrocodone Bitart ([place] 5/325 Tab) 2 tab Q4H PRN PO 03/28/17 08:00 04/11/17 07:59 Aripiprazole (Abilify Tab) 5 mg QAM PO 03/28/17 09:00 04/27/17 08:59 03/30/17 08:14 5 MG Aspirin (Ecotrin Tab) 81 mg QAM PO 03/28/17 09:00 04/27/17 08:59 03/30/17 08:14 81 MG Escitalopram Oxalate (Lexapro Tab) 30 mg QAM PO 03/28/17 09:00 04/27/17 08:59 03/30/17 08:14 30 MG Methylprednisolone (Medrol Tab) 8 mg QAM PO 03/28/17 09:00 04/27/17 08:59 03/30/17 08:14 8 MG Pregabalin (Lyrica Cap) 150 mg BID PO 03/27/17 21:00 04/26/17 20:59 03/30/17 08:14 150 MG Raloxifene HCl (Evista Tab) 60 mg QAM PO 03/28/17 09:00 04/27/17 08:59 03/30/17 08:15 60 MG Miscellaneous Information (Order Awaiting Action) 1 ea QS N/A 03/27/17 14:30 04/26/17 14:29 Verapamil HCl (Calan-Sr Tab) 180 mg DAILY PO 03/28/17 09:00 04/27/17 08:59 Future Hold 03/28/17 08:00 180 MG Methotrexate 20 mg/Syringe 0.8 ml @ 1 mls/min Mo@0900 SC 03/27/17 16:00 04/26/17 15:59 03/27/17 16:27 1 MLS/MIN Insulin Aspart (novoLOG ASPART) SLIDING SCALE G... ACHS SC 03/28/17 17:15 04/27/17 17:14 03/29/17 20:51 1 UNITS Hydromorphone HCl (Dilaudid Inj) 0.5 mg Q3H PRN IV 03/29/17 17:30 04/12/17 17:29 03/30/17 09:02 0.5 MG Objective Vital Signs Date Time Temp Pulse Resp B/P (MAP) Pulse Ox O2 Delivery O2 Flow Rate FiO2 03/30/17 08:53 90 Room Air 03/30/17 08:45 Room Air 03/30/17 07:30 36.6 69 19 134/78 (96) 90 Room Air 03/29/17 22:50 36.8 78 16 139/72 (94) 93 Room Air 03/29/17 19:50 Room Air 03/29/17 15:44 36.6 84 19 132/75 93 03/29/17 15:23 36.7 86 19 149/74 97 03/29/17 15:20 36.7 86 19 149/74 (99) 97 Room Air 03/29/17 14:15 36.7 90 19 124/65 97 03/29/17 14:13 36.7 90 19 124/65 92 03/29/17 13:45 36.7 92 18 132/64 93 03/29/17 13:15 36.8 90 19 130/62 91 03/29/17 13:00 36.6 93 19 134/68 93 03/29/17 12:37 36.5 94 18 121/73 Physical Exam General Appearance: no apparent distress, + obese Eyes: normal inspection, PERRL ENT: hearing grossly normal Neck: supple Respiratory/Chest: lungs clear, no respiratory distress, no accessory muscle use Cardiovascular: regular rate, rhythm Abdomen: normal bowel sounds, non tender, soft Extremities: normal range of motion, no pedal edema, no calf tenderness Neurologic/Psychiatric: no motor/sensory deficits, alert, normal mood/affect, oriented x 3 Skin: normal color, warm/dry, no rash Laboratory Results Last 24 Hours Test 03/29/17 17:29 03/29/17 20:46 03/30/17 05:21 03/30/17 08:10 Bedside Glucose 142 mg/dl 166 mg/dl 119 mg/dl White Blood Count 17.14 K/uL Red Blood Count 3.06 M/uL Hemoglobin 9.6 g/dL Hematocrit 28.0 % Mean Corpuscular Volume 91.5 fL Mean Corpuscular Hemoglobin 31.4 pg Mean Corpuscular Hemoglobin Concent 34.3 g/dl RDW Standard Deviation 54.2 fL RDW Coefficient of Variation 16.4 % Platelet Count 152 K/uL Mean Platelet Volume 9.0 fL Nucleated RBC Absolute Count (auto) 0.03 K/uL Nucleated Red Blood Cells % 0.2 % Sodium Level 141 mmol/L Potassium Level 4.3 mmol/L Chloride Level 106 mmol/L Carbon Dioxide Level 30 mmol/L Anion Gap 5.0 mmol/L Blood Urea Nitrogen 23 mg/dl Creatinine 0.67 mg/dl Est Creatinine Clear Calc Drug Dose 104.1 ml/min Estimated GFR () 104.7 Estimated GFR (Non- 90.3 BUN/Creatinine Ratio 33.6 Random Glucose 120 mg/dl Calcium Level 8.0 mg/dl Assessment and Plan 66 yo F PMHx of Rheumatoid arthritis, hypertension, asthma, and depression. She presents for an elective L1-L5 laminectomy of the spine by Dr. Willard on . s/p L1 to L5 laminectomy and spine by Dr. Willard on 03/27: - Admitted to med/surg - Lyrica 150 mg BID - Surgical management, pain management, DVT prophylaxis and PT/OT as per primary team -- Pain control per primary team- IV Dilaudid, Percocet, [place], Tylenol- limit pain medications due to drowsiness -- IV Dexamethasone 2.5 mg x5 doses -- Bowel regimen- Dulcolax, Reglan, MiraLAX, Milk of Mag Encephalopathy/fatigue, ?secondary to narcotics, lingering anesthesia, or less likely infectious process- RESOLVED: - Checked ABG- metabolic acidosis- O2 protocol, CPAP - Discontinued Phenergan, Ativan/benzos - UCx negative- already on IV Ancef 2,000 mg x3 doses 03/27-03/28 - CXR on 03/28- Basilar atelectasis. No evidence of lobar consolidation- encouraged incentive spirometer - CPK mildly elevated at 230- continue IVF Acute blood loss anemia, secondary to laminectomy- transfused a total of 3 U PRBCs: - Transfused 1 U PRBCs intraoperatively on 03/27 - Transfused 2 U PRBCs on 03/29 due to hgb of 8/4 by surgical team - Following H&H- STABLE HTN w/ hypotension intraoperatively- STABLE: - Verapamil 180 mg daily, Lasix 20 mg daily, and Lisinopril 5 mg daily held- resume at discharge - Treated w/ IV Dexamethasone Mild tachycardia, likely secondary to acute blood loss anemia, pain, and holding CCB- RESOLVED: - EKG w/ no acute changes - IVF - Transfusions as above - Continue to monitor Leukocytosis, likely secondary to IV steroids/stress- IMPROVING: Continue to follow CBC and monitor for s/s of infection Mild acute kidney injury- RESOLVED: Follow PRP Rheumatoid arthritis: Continue Medrol 8 mg QAM, Evista 80 mg QAM, Tocilizumab 400 mg every 20 days, Methotrexate 0.8 SQ WKLY on Mon Depression: Continue Lexapro 30 mg QAM, Abilify 5 mg QAM Pre-diabetic- hA1C= 5.9%: - T2DM - BSG ACHS w/ sliding insulin scale Mild hypoxemia, ?secondary to obesity-hypoventilation syndrome + ROSELINE: - O2 protocol, wean as tolerated - CPAP - Overnight pulse oximetry completed, but will need to be completed prior to discharge home from [facility] to qualify for home nocturnal O2 supplement - Recommend outpatient sleep study h/o asthma- STABLE DVT Prophylaxis: Mechanical w/ TEDs/SCDs, ASA 81 mg daily as per primary team Code Status: LEVEL I, FULL Disposition: Discharge as per primary team to [facility]
[2017-03-30 13:53] VITALS: O2SAT 97
[2017-03-30 16:25] VITALS: BP 180/91; PULSE 73; TEMP 36.8; O2SAT 95
[2017-03-30 17:56] VITALS: BP 180/91; PULSE 73; TEMP 36.8; O2SAT 95
--- NOTE | 2017-04-01 08:34 | Discharge Summary ---
Orthopedic Discharge Summary Admission Date/Reason Mar 27, 2017 at 07:17 Spondylosis. Discharge Date/Disposition Mar 30, 2017 Rehab Diagnosis Principal Diagnosis: Severe scoliosis spondylolisthesis correction of curvature and fusion L1 to L5. Secondary Diagnoses/Problems: Severe obesity blood loss anemia Procedure(s) Performed Scoliosis correction fusion instrumentation L5 S1 to L5 lumbar spine Consultations Internal medicine Admission Physical Exam As per Admitting History & Physical. Hospital Course Hospital course Patient was admitted to my service after very extensive lumbar spine surgery was corrective surgery for a scoliotic curvature level spondylolisthesis severe stenosis of the spine and spinal instability. In recovery room secondary to IV sedation morbid obesity had some pulmonary insufficiency. I do not feel a true respiratory failure and has not complication with surgical intervention. Out of bed to chair day one ambulatory she was a definite rehabilitation placement candidate. She would not be safe going to her home environment. She was stabilized last day of admission she was alert oriented pain controlled no neurological deficit no shortness of breath confusion. She was discharged to rehabilitation facility from the hospital. Thank you Discharge Instructions Please refer to the electronic Patient Visit Report (Discharge Instructions) for additional information.
== END 2017-03-30 20:12 | DRG 456 ==
LOC: C.ACU 05:01 → C.3E 07:17 → ENRESERV 12:45
PROVIDERS: ADMIT Orthopaedic Surgery Orthopaedic Surgery of the Spine; ATTEND Orthopaedic Surgery Orthopaedic Surgery of the Spine
PROC: [UNRECOGNIZED PROCEDURE] (principal; 2017-03-27 07:30)
DX: M41.86 Other forms of scoliosis, lumbar region (principal); G93.40 Encephalopathy, unspecified; J95.821 Acute postprocedural respiratory failure; Z68.42 Body mass index [BMI] 45.0-49.9, adult; D62 Acute posthemorrhagic anemia; N17.9 Acute kidney failure, unspecified; E87.2 Acidosis; M43.16 Spondylolisthesis, lumbar region; M43.06 Spondylolysis, lumbar region; M06.9 Rheumatoid arthritis, unspecified; I10 Essential (primary) hypertension; J45.909 Unspecified asthma, uncomplicated; F32.9 Major depressive disorder, single episode, unspecified; G47.33 Obstructive sleep apnea (adult) (pediatric); E66.01 Morbid (severe) obesity due to excess calories; R00.0 Tachycardia, unspecified; I95.9 Hypotension, unspecified; D72.829 Elevated white blood cell count, unspecified; Z79.82 Long term (current) use of aspirin; Z79.899 Other long term (current) drug therapy; Z79.52 Long term (current) use of systemic steroids; Z96.653 Presence of artificial knee joint, bilateral

== ENCOUNTER 2020-06-15 08:46 | Inpatient (IN) ==
--- NOTE | 2020-05-19 08:49 | PAT Medication Instructions ---
Medication Instructions Date of Service May 19, 2020 Home Medications Medication Instructions Recorded estradiol 1 g PV DAILY #42.5 gm 01/13/20 amlodipine 10 mg tablet 10 mg PO QAM benztropine 1 mg tablet 1 mg PO QAM carvedilol 6.25 mg tablet 6.25 mg PO BID folic acid 1 mg tablet 1 mg PO BID glipizide 5 mg tablet 5 mg PO QAM metformin 500 mg tablet 500 mg PO BID methylprednisolone 4 mg tablet 4 mg PO DAILY modafinil 200 mg tablet 200 mg PO QAM sumatriptan succinate 6 mg/0.5 mL subcutaneous cartridge (refill) 6 mg SQ DAILY PRN estradiol 1 g PV DAILY albuterol sulfate 90 mcg/actuation aerosol inhaler 2 puffs INH Q6H PRN leucovorin calcium 5 mg tablet 5 mg PO QAM pregabalin 150 mg capsule 150 mg PO QAM tocilizumab 162 mg/0.9 mL subcutaneous syringe 162 mg SUBCUT MONTHLY A-C-E-zinc ox-cupric ox-lutein [[facility]] 1 tab PO QAM aripiprazole [Abilify] 5 mg PO QAM celecoxib [Celebrex] 200 mg PO BID cholecalciferol (vitamin D3) 25 mcg PO QAM clonazepam [Klonopin] 0.5 mg PO HS escitalopram oxalate 20 mg PO QAM furosemide 20 mg PO QAM hydrocodone-acetaminophen 1 tab PO QID PRN lidocaine [Lidoderm] 1 patch TOPICAL DAILY PRN lorazepam 0.5 mg PO TID PRN methotrexate sodium 50 mg IM UD methylprednisolone 8 mg PO QAM nitrofurantoin macrocrystal 50 mg PO QAM vitamin B complex 1 cap PO HS ASK your prescriber and surgeon tocilizumab 162 mg/0.9 mL subcutaneous syringe 162 mg SUBCUT MONTHLY methotrexate sodium 50 mg IM UD DO NOT take the morning of surgery folic acid 1 mg tablet 1 mg PO BID glipizide 5 mg tablet 5 mg PO QAM metformin 500 mg tablet 500 mg PO BID modafinil 200 mg tablet 200 mg PO QAM leucovorin calcium 5 mg tablet 5 mg PO QAM A-C-E-zinc ox-cupric ox-lutein [[facility]] 1 tab PO QAM cholecalciferol (vitamin D3) 25 mcg PO QAM furosemide 20 mg PO QAM lidocaine [Lidoderm] 1 patch TOPICAL DAILY PRN Take morning of surgery With a small sip of water, OTHERWISE NOTHING TO EAT OR DRINK AFTER MIDNIGHT: amlodipine 10 mg tablet 10 mg PO QAM benztropine 1 mg tablet 1 mg PO QAM carvedilol 6.25 mg tablet 6.25 mg PO BID methylprednisolone 4 mg tablet 4 mg PO DAILY estradiol 1 g PV DAILY sumatriptan succinate 6 mg/0.5 mL subcutaneous cartridge (refill) 6 mg SQ DAILY PRN (if needed) albuterol sulfate 90 mcg/actuation aerosol inhaler 2 puffs INH Q6H PRN (if needed) pregabalin 150 mg capsule 150 mg PO QAM aripiprazole [Abilify] 5 mg PO QAM escitalopram oxalate 20 mg PO QAM hydrocodone-acetaminophen 1 tab PO QID PRN (if needed, may be taken up to four hours before surgery) lorazepam 0.5 mg PO TID PRN (if needed) methylprednisolone 8 mg PO QAM nitrofurantoin macrocrystal 50 mg PO QAM Take evening before surgery carvedilol 6.25 mg tablet 6.25 mg PO BID folic acid 1 mg tablet 1 mg PO BID metformin 500 mg tablet 500 mg PO BID sumatriptan succinate 6 mg/0.5 mL subcutaneous cartridge (refill) 6 mg SQ DAILY PRN (if needed) albuterol sulfate 90 mcg/actuation aerosol inhaler 2 puffs INH Q6H PRN (if needed) clonazepam [Klonopin] 0.5 mg PO HS hydrocodone-acetaminophen 1 tab PO QID PRN (if needed) lidocaine [Lidoderm] 1 patch TOPICAL DAILY PRN (if needed) lorazepam 0.5 mg PO TID PRN vitamin B complex 1 cap PO HS Other Notes If you have any questions please call us at [phone] or [phone] or [phone] or [phone]
--- NOTE | 2020-05-19 15:22 | Anesthesiology Consultation ---
Date of Service May 19, 2020 Assessment & Plan (1) Encounter for pre-operative examination: COVID Status: As of 05/19 assessment, patient denies travel to endemic area, known exposure/sick contacts, or symptoms of COVID19. Patient instructed that they and their household members must follow strict social distancing guidelines, wear a mask in public and avoid travel for 14 days prior to surgery. Preoperative COVID19 testing to be completed prior to surgery per surgeon's arr angements. Patient made aware to self-isolate as much as possible between COVID testing and surgery. BSG AM DOS. CAUTION WITH REGIONAL NERVE BLOCK. CHRONIC BASELINE HYPOXIA (~91%) AND R HEMIDIAPHRAGM ELEVATION ON CXR. Chart Review Chart Review: Acceptable Risk for Surgery and Patient seen in Pre Admission Testing Teaching & Discussion Instructed NPO after midnight before surgery, except medications with 15 cc of water. Medication instructions provided according to the PAT guidelines. History Surgery Operation Date: 06/15/20 11:10 Proposed Procedures p Left Reverse Total Shoulder Arthroplasty - Juan Alatorre DO Height/Weight Height: 5 ft 5 in Weight: 117.7 kg Allergies Allergy/AdvReac Type Severity Reaction Status Date / Time No Known Allergies Allergy Unknown ` Verified 05/15/20 08:58 Medications Home Medications Medication Instructions Recorded Confirmed Last Taken amlodipine 10 mg tablet 10 mg PO QAM 11/11/19 05/19/20 Unknown benztropine 1 mg tablet 1 mg PO QAM 11/11/19 05/19/20 Unknown carvedilol 6.25 mg tablet 6.25 mg PO BID 11/11/19 05/19/20 Unknown folic acid 1 mg tablet 1 mg PO BID 11/11/19 05/19/20 Unknown glipizide 5 mg tablet 5 mg PO QAM 11/11/19 05/19/20 Unknown metformin 500 mg tablet 500 mg PO BID 11/11/19 05/19/20 Unknown methylprednisolone 4 mg tablet 4 mg PO DAILY 11/11/19 05/19/20 Unknown modafinil 200 mg tablet 200 mg PO QAM 11/11/19 05/19/20 Unknown sumatriptan succinate 6 mg/0.5 mL 6 mg SQ DAILY PRN 11/11/19 05/19/20 Unknown subcutaneous cartridge (refill) estradiol 1 g PV DAILY #42.5 gm 01/13/20 05/19/20 Unknown albuterol sulfate 90 mcg/actuation 2 puffs INH Q6H PRN 02/06/20 05/19/20 Unknown aerosol inhaler leucovorin calcium 5 mg tablet 5 mg PO QAM 02/06/20 05/19/20 Unknown pregabalin 150 mg capsule 150 mg PO QAM 02/06/20 05/19/20 Unknown tocilizumab 162 mg/0.9 mL 162 mg SUBCUT MONTHLY 02/06/20 05/19/20 Unknown subcutaneous syringe A-C-E-zinc ox-cupric ox-lutein 1 tab PO QAM 05/15/20 05/19/20 Unknown [[facility]] aripiprazole [Abilify] 5 mg PO QAM 05/15/20 05/19/20 Unknown celecoxib [Celebrex] 200 mg PO BID 05/15/20 05/19/20 Unknown cholecalciferol (vitamin D3) 25 mcg PO QAM 05/15/20 05/19/20 Unknown [Vitamin D3] clonazepam [Klonopin] 0.5 mg PO 05/15/20 05/19/20 Unknown escitalopram oxalate 20 mg PO QAM 05/15/20 05/19/20 Unknown furosemide 20 mg PO QAM 05/15/20 05/19/20 Unknown hydrocodone-acetaminophen 1 tab PO QID PRN 05/15/20 05/19/20 Unknown lidocaine [Lidoderm] 1 patch TOPICAL DAILY PRN 05/15/20 05/19/20 Unknown lorazepam 0.5 mg PO TID PRN 05/15/20 05/19/20 Unknown methotrexate sodium 50 mg IM UD 05/15/20 05/19/20 Unknown methylprednisolone 8 mg PO QAM 05/15/20 05/19/20 Unknown nitrofurantoin macrocrystal 50 mg PO QAM 05/15/20 05/19/20 Unknown vitamin B complex 1 cap PO 05/15/20 05/19/20 Unknown Past Medical History Medical History (Updated 05/20/20 @ 10:34 by Som Musa) Anxiety Asthma Using PRN inlaher only ~ once/month Uses O2 @ 2L ~ 3x per week Cardiac murmur FOLLOW WITH MEDICAL DOCTOR Depression Diabetes mellitus, type 2 Hiatal hernia Hyperlipidemia NO MEDS Hypertension Hypoxia PRN O2 @ 2L. Uses ~ 3x per week. O2 sats 90-91% on room air at PAT, pt reports this is baseline. Kidney stones HX Migraine Osteoarthritis Rheumatoid arthritis FOLLOW WITH [facility]. CHRONIC STEROID USE. Exercise / Class Metabolic Activity III < 4 Walking/Shop/Light housework (Very limited ambulation due to ankle boot, denies CP, does get SOB and has 2L O2 to use as needed) Past Family History Family History Father Hypertension Past Surgical History Surgical History (Updated 05/19/20 @ 15:18 by Som Musa) H/O shoulder surgery RIGHT TSA History of ankle surgery LEFT History of back surgery LUMBAR FUSION x 2 History of knee replacement RIGHT AND LEFT Hx of cholecystectomy Hx of colonoscopy Past Anesthesia History No Hx of Anesthesia Complications and No Family Hx of Anesthesia Complications History of PONV No Hx of PONV and No Hx of Motion Sickness Social History Smoking Status: Never smoker Do You Dip or Chew Tobacco: No Hx Alcohol Use: No Hx Substance Use: No substance use type: does not use Review of Systems Pt denies any recent chest pain, shortness of breath above baseline, palpitations, cough, fever, URI, or uncontrolled acid reflux. Physical Exam Vital Signs BP: 114/71 P: 86bpm SPO2: 90-91% (pt reports this is baseline for her) T: 98.9 F R: 16 Constitutional + morbidly obese Cushingoid appearance. ENMT Mouth: + small oral opening; no dental restorations, no chipped teeth and no loose teeth Thyromental Distance: > or= 3.5 Finger Breadths Mallampati Class: III Neck + short neck, + thick neck and + limited neck extension Respiratory normal respiratory effort Auscultation: lungs clear to auscultation bilaterally Diminished R lung base. Cardiovascular Rate/Rhythm: regular rate and regular rhythm Heart Sounds: + murmur (I/ systolic LSB) Testing Laboratory Results 05/19/20 15:41 05/19/20 15:41 PT 10.8 Seconds (9.0-12.0) 05/19/20 15:41 INR 1.0 (0.9-1.1) 05/19/20 15:41 APTT 20.9 Seconds (21.0-31.0) L 05/19/20 15:41 Hemoglobin A1c 6.6 % (4.5-5.6) H 05/19/20 15:41 Blood Type A Positive 05/19/20 15:44 Antibody Screen NEGATIVE 05/19/20 15:44 Electrocardiogram Date: 05/19/20 Findings: + NSR @ (79bpm) Chest X-Ray Date: 05/19/20 IMPRESSION: 1. No acute cardiopulmonary findings. 2. Increase in moderate elevation of the right hemidiaphragm. 3. Mild cardiomegaly without evidence for pulmonary edema.
--- NOTE | 2020-05-19 16:09 | XRay Report ---
XR chest Pre-admission PA/Lat CLINICAL HISTORY: Preoperative evaluation. COMPARISON STUDY: Chest radiograph March 28, 2017. FINDINGS: Right shoulder arthroplasty and lumbar spine fusion hardware is partially imaged. Moderate elevation of the right hemidiaphragm has increased. There is mild cardiomegaly without evidence for p ulmonary edema. There is no consolidation. No pneumothorax or pleural effusion is noted. IMPRESSION: 1. No acute cardiopulmonary findings. 2. Increase in moderate elevation of the right hemidiaphragm. 3. Mild cardiomegaly without evidence for pulmonary edema. ACT 112: Negative or not required by law. Electronically signed by: Guillermo Donis M.D. 05/19/2020 4:08 PM
[2020-05-19 16:36] LABS: Basophils # (auto) 0.02 K/uL (0-0.2); Basophils % (auto) 0.2 %; Eosinophils # (auto) 0.04 K/uL (0-0.5); Eosinophils % (auto) 0.3 %; Hematocrit (blood only) 47.8 % (37-47); Hemoglobin 15.8 g/dL (12.0-16.0); Immature Granulocytes # (auto) 0.03 K/uL (0.00-0.02); Immature Granulocytes % (auto) 0.3 %; Lymphocytes % (auto) 6.8 %; Mean Corpuscular Hemoglobin 33.4 pg (25-34); Mean Corpuscular Hgb Conc 33.1 g/dL (32-36); Mean Corpuscular Volume 101.1 fL (80-100); Monocytes # (auto) 0.59 K/uL (0.11-0.59); Neutrophils # (auto) 10.23 K/uL (1.4-6.5); Neutrophils % (auto) 87.4 %; Platelet Count 187 K/uL (130-400); RDW Coefficient of Variation 14.9 % (11.5-14.5); RDW Standard Deviation 54.8 fL (36.4-46.3); Red Blood Count 4.73 M/uL (4.2-5.4); White Blood Count 11.71 K/uL (4.8-10.8)
[2020-05-19 16:48] LABS: BUN Creatinine Ratio 23.6 (10-20); Calcium 10.3 mg/dl (8.5-10.1); Creatinine Clr Calc Pharmacy 66.9 ml/min; Est GFR (African American) 66.4; Est GFR (Non-African American) 57.3; Partial Thromboplastin Ratio 0.7; Partial Thromboplastin Time 20.9 Seconds (21.0-31.0); Potassium 3.9 mmol/L (3.5-5.1); Prothrombin Time 10.8 Seconds (9.0-12.0)
--- NOTE | 2020-05-19 18:23 | Electrocardiogram Report ---
Test Reason : Blood Pressure : / mmHG Vent. Rate : 079 BPM Atrial Rate : 079 BPM P-R Int : 154 ms QRS Dur : 086 ms QT Int : 386 ms P-R-T Axes : 020 050 080 degrees QTc Int : 442 ms Normal sinus rhythm Normal ECG When compared with ECG of 28-MAR-2017 08:28, Vent. rate has decreased BY 39 BPM Nonspecific T wave abnormality, improved in Lateral leads Confirmed by Davy Lantigua ([id number] on 05/19/2020 6:22:55 PM Referred By: Juan Alatorre Confirmed By:Mj Lantigua
[2020-05-20 05:54] LABS: Estimated Average Glucose 143 mg/dl; Hemoglobin A1C 6.6 % (4.5-5.6)
--- NOTE | 2020-06-10 20:42 | History & Physical Report ---
Date of Service June 10, 2020 Assessment & Plan (1) Left rotator cuff tear arthropathy: We will proceed with a left reverse shoulder arthroplasty. Postoperatively she will be placed in a sling and kept overnight in the hospital for postoperative medical management. She is walker dependent and is planning to go to a rehab facility upon discharge. Present on Admission?: Yes History of Present Illness Chief Complaint: Rotator cuff arthropathy of the left shoulder Primary Care Provider: Hallie Go Mery Morelos is a pleasant 69-year-old female who I did a right reverse shoulder arthroplasty on 2012. She did well with that. Unfortunate she has now been dealing with left shoulder pain. Her shoulder is keeping her up at night. She has trouble doing activities away from her body. She is having trouble using her walker because of her left shoulder. She recently had a left ankle fusion and has been recovering from that. MRI of her shoulder shows a large retracted rotator cuff tear. There is also some evidence of rheumatoid arthritis. After failing conservative treatment, including multiple injections, she has elected to proceed with a left reverse shoulder arthroplasty. Allergies Allergy/AdvReac Type Severity Reaction Status Date / Time No Known Allergies Allergy Unknown ` Verified 05/15/20 08:58 Home Medications Home Medications Medication Instructions Recorded Confirmed Type amlodipine 10 mg tablet 10 mg PO QAM 11/11/19 05/19/20 History benztropine 1 mg tablet 1 mg PO QAM 11/11/19 05/19/20 History carvedilol 6.25 mg tablet 6.25 mg PO BID 11/11/19 05/19/20 History folic acid 1 mg tablet 1 mg PO BID 11/11/19 05/19/20 History glipizide 5 mg tablet 5 mg PO QAM 11/11/19 05/19/20 History metformin 500 mg tablet 500 mg PO BID 11/11/19 05/19/20 History methylprednisolone 4 mg tablet 4 mg PO DAILY 11/11/19 05/19/20 History modafinil 200 mg tablet 200 mg PO QAM 11/11/19 05/19/20 History sumatriptan succinate 6 mg/0.5 mL 6 mg SQ DAILY PRN 11/11/19 05/19/20 History subcutaneous cartridge (refill) estradiol 1 g PV DAILY #42.5 gm 01/13/20 05/19/20 Rx albuterol sulfate 90 mcg/actuation 2 puffs INH Q6H PRN 02/06/20 05/19/20 History aerosol inhaler leucovorin calcium 5 mg tablet 5 mg PO QAM 02/06/20 05/19/20 History pregabalin 150 mg capsule 150 mg PO QAM 02/06/20 05/19/20 History tocilizumab 162 mg/0.9 mL 162 mg SUBCUT MONTHLY 02/06/20 05/19/20 History subcutaneous syringe [id number] ox-cupric ox-lutein 1 tab PO QAM 05/15/20 05/19/20 History [[facility]] aripiprazole [Abilify] 5 mg PO QAM 05/15/20 05/19/20 History celecoxib [Celebrex] 200 mg PO BID 05/15/20 05/19/20 History cholecalciferol (vitamin D3) 25 mcg PO QAM 05/15/20 05/19/20 History [Vitamin D3] clonazepam [Klonopin] 0.5 mg PO 05/15/20 05/19/20 History escitalopram oxalate 20 mg PO QAM 05/15/20 05/19/20 History furosemide 20 mg PO QAM 05/15/20 05/19/20 History hydrocodone-acetaminophen 1 tab PO QID PRN 05/15/20 05/19/20 History lidocaine [Lidoderm] 1 patch TOPICAL DAILY PRN 05/15/20 05/19/20 History lorazepam 0.5 mg PO TID PRN 05/15/20 05/19/20 History methotrexate sodium 50 mg IM UD 05/15/20 05/19/20 History methylprednisolone 8 mg PO QAM 05/15/20 05/19/20 History nitrofurantoin macrocrystal 50 mg PO QAM 05/15/20 05/19/20 History vitamin B complex 1 cap PO HS 05/15/20 05/19/20 History Past Med/Surg History Medical History Anxiety Asthma Using PRN inlaher only ~ once/month Uses O2 @ 2L ~ 3x per week Cardiac murmur FOLLOW WITH MEDICAL DOCTOR Depression Diabetes mellitus, type 2 Hiatal hernia Hyperlipidemia NO MEDS Hypertension Hypoxia PRN O2 @ 2L. Uses ~ 3x per week. O2 sats 90-91% on room air at PAT, pt reports this is baseline. Kidney stones HX Migraine Osteoarthritis Rheumatoid arthritis FOLLOW WITH [facility]. CHRONIC STEROID USE. 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 current occupational status: retired Feels Safe at Home: Yes Assistive Devices: None Review of Systems Review of Systems: All systems reviewed & are unremarkable except as noted in HPI & below Physical Exam Constitutional: WD/WN, vitals as above Eyes: PERRL, conjunctivae normal, anicteric sclerae ENMT: external ear and nose normal, oropharynx normal Neck: trachea midline, no thyromegaly Respiratory: normal respiratory effort Cardiovascular: RRR, no murmur, no edema Gastrointestinal (Abdomen): normal bowel sounds, soft, nontender, no hepatosplenomegaly Musculoskeletal: Physical examination of the left shoulder reveals decreased range of motion and significant weakness. There is tenderness palpation along the anterior glenohumeral joint line. The right upper extremity is neurovascularly intact. Psychiatric: A+Ox3, euthymic affect Results & Data Results & Data ([facility]) Diagnostic Findings Radiographs of the left shoulder show some signs of osteoarthritis with blunting of the greater tuberosity and some superior migration of the humeral head on the glenoid. PG Care Time/CCT Total # of Minutes Spent Total Time Spent with Patient: Total time spent is greater than 50% in co ordination of care (as documented) at patient's floor/unit and/or counseling patient: Coding Level of Care Code None Diagnoses Left rotator cuff tear arthropathy M75.102; M12.812
[~2020-06-15 08:46] MED LIST changes: -ABL/5 PO; +ACETAMINOPHEN 500 MG TAB PO SCH; -ASPI1TAB83 PO; -B-COTAB18 PO; +BUPIVACAINE 0.5 % 5 MG/1 ML PF 10ML VIAL ONE; +CEFAZOLIN 2000MG 2,000 MG/15 ML SYR IV SCH; -CHOL1000 PO; -CLB/200 PO; -ESCI1TAB10 PO; +FAMOTIDINE 20 MG TAB PO SCH; -FURO-85 PO; +GABAPENTIN 300 MG CAP PO SCH; -HYDR-4383 PO; +LIDOCAINE HCL 2% 2 ML VIAL/AMP(20MG/ML) INFIL ONE; -LISI5TAB3 PO; -LORA-741 PO; +LR 60ML/HR IV SCH; -LUTE10TA PO; -METH1TAB81 PO; -METHOTREXATE INJ SQ; +MIDAZOLAM HCL 1 MG/ML 2ML VIAL ONE; -MORP1TAB12 PO; -NF656; -OMEG12006 PO; +ONDANSETRON INJ 2 MG/ML 2 ML VIAL ONE; -PREG1CAP70 PO; +PROPOFOL IV EMULSION 10 MG/ML 20 ML VIAL IV ONE; -RALO60TA12 PO; +ROCURONIUM BROMIDE 10 MG/ML 5 ML VIAL IV ONE; +ROPIVACAINE 0.5% HCL/PF 150 MG, BUPIVACAINE 0.5% MPF 30 ML, EPINEPHrine 30MG/30ML (OR U... INFIL SCH; +TRANEXAMIC ACID 1,000 MG **IV Intra-op IV SCH; +TRANEXAMIC ACID 1,000 MG **IV Pre-op IV SCH; -VERAPAMIL PO; -[UNRECOGNIZED DRUG - CODE] IV; +dexAMETHasone 4 MG TAB PO SCH; +fentaNYL citrate 100 MCG/2 ML VIAL ONE
--- NOTE | 2020-06-15 08:55 | History & Physical Bridge Note ---
Date of Service June 15, 2020 History & Physical Bridge Note I have examined the patient, reviewed the History & Physical and in the interval since the performance of the History & Physical I have noted the following changes of clinical significance: no changes noted
[2020-06-15] MEDS ORDERED: SCOPOLAMINE 1.5 MG TDSY TD ONE (10:15)
[2020-06-15] MEDS ORDERED: ORTHO JOINT ANESTHETIC ONE (10:21)
[2020-06-15] MEDS ORDERED: fentaNYL citrate 100 MCG/2 ML VIAL IV PRN (10:23)
[2020-06-15] MEDS ORDERED: ePHEDrine sulfate 50 MG/ML AMP IV PRN (10:23)
[2020-06-15] MEDS ORDERED: ATROPINE SULFATE 0.1 MG/ML 10ML SYR IV PRN (10:23)
[2020-06-15] MEDS ORDERED: ONDANSETRON INJ 2 MG/ML 2 ML VIAL IV PRN ×2 (10:23→14:34)
[2020-06-15] MEDS ORDERED: PHENYLEPHRINE 100MCG/ML 5ML SYR ONE (11:12)
[2020-06-15] MEDS ORDERED: fentaNYL citrate 100 MCG/2 ML VIAL ONE (11:14)
[2020-06-15] MEDS ORDERED: ROCURONIUM BROMIDE 10 MG/ML 5 ML VIAL IV ONE ×4 (11:54→11:55)
[2020-06-15] MEDS ORDERED: HYDROCORTISONE SOD SUCCINATE 100 MG/2 ML VIAL ONE (11:55)
[2020-06-15] MEDS ORDERED: SUCCINYLCHOLINE CHLORIDE 20 MG/ML 10 ML VIAL IV ONE (11:55)
--- NOTE | 2020-06-15 11:58 | Operative Report ---
PG Post Operative Report Pre & Post Diagnosis Operation Date: 06/15/20 10:55 Pre-Op Diagnosis: Left Shoulder rotator cuff arthropathy with tendinopathy of the long head of the biceps tendon Post-Op Diagnosis: Left Shoulder rotator cuff arthropathy with tendinopathy of the long head of the biceps tendon I identified the patient and participated in the time-out.: Yes Procedure Operation Date: 06/15/20 10:55 Actual Procedures p Left Reverse Total Shoulder Arthroplasty with open biceps tenodesis as a distinct and separate procedure (modifier 59) (Left) - Juan Alatorre DO Surgeon Juan Alatorre DO Appeals Referee Juan Gomez PAC Estimated Blood Loss 300 Findings Consistent with Post-Op Diagnosis Specimens Left humeral head Complications none Disposition Disposition: Recovery Room Indications Tamy is a pleasant 69-year-old female who is been dealing with chronic increasing left shoulder pain. MRI and clinical examination were diagnostic for cuff arthropathy of the left shoulder. After failing conservative treatment, she elected proceed with a left reverse shoulder arthroplasty. Description of Procedure A CPT code modifier 59: The long head of the biceps tendon was enlarged and i nflamed consistent with tendinopathy. A tenodesis was opted. This was a separate and distinct portion of the procedure. For these reasons, a CPT code modifier 59 will be added to this case. Implants used: I used a [employer] Comprehensive reverse total shoulder arthroplasty system with a size 11 press fit micro humeral stem, a +6 humeral tray and a standard humeral bearing, a 25 mm small augment baseplate with a 6.5 mm central screw and superior and inferior locking screws, and a size 40 mm eccentric glenosphere. Tamy arrived at [facility] for the above procedure. She was seen in the preoperative holding area and the operative extremity was identified and signed. She was given a preoperative antibiotic and TXA. Due to lung issues she was not given an interscalene block.. She was taken back to the operating room, laid on table in supine position, and put under general anesthesia. She was then put into the beachchair position. The shoulder was then prepped and draped in sterile fashion. A timeout was done and the patient and the operative extremity was properly identified. A deltopectoral approach was used. Dissection was taken down through the fascia and the deltoid was retracted laterally and the conjoined tendon was retracted medially. The anterior shoulder was exposed. The biceps groove was opened up and the biceps tendon was examined extensively. The biceps tendon demonstrated enlargement and inflammatory changes consistent with longstanding inflammation in the context of osteoarthritis and cuff arthropathy. The long head of the biceps tendon was then tenodesed to the upper border of the pectoralis major. This was a separate and distinct portion of the procedure. The subscapularis was already torn and the capsule was peeled off the anterior humerus. The inferior capsule was released and the humeral head was dislocated. A canal finding reamer was sent down the center of the humeral canal. Sequential reaming up to a size 11 reamer was done. Off that reamer, a proximal humeral resection guide was placed. The proximal humerus was resected at 135 of inclination and 25 of retroversion. Osteophytes were then removed and the glenoid was exposed. Time was spent doing a complete capsular and labral release. The glenoid guide was then placed in the inferior aspect of the glenoid. A 3.2 mm Steinmann pin was then placed into the glenoid vault at 10 of inclination. The glenoid baseplate was then reamed. The final size 25 mm small augment baseplate was then impacted in the place. A 6.5 mm central screw was then placed followed by superior and inferior locking screws. A 40 mm eccentric glenosphere was then impacted into place. Surrounding soft tissues were then injected with 100 cc an orthopedic pain control cocktail. The proximal humerus was then exposed. Sequential broaching of the humerus up to a size 11 broach was done. Off that broach a +6 humeral tray was trialed. The shoulder was then reduced, brought through a full range of motion, and felt to be stable. The shoulder was then dislocated and the broach was removed. The final size 11 micro press-fit humeral stem was then impacted into place. A standard humeral bearing was then snapped onto a +6 humeral tray. The humeral tray was then impacted onto the humeral stem. The shoulder was once again reduced, brought through a full range of motion, and felt to be stable. The subscapularis was torn and not repairable. A dilute betadyne lavage was then done for 3 minutes. The joint was then irrigated with normal saline solution. Hemostasis was obtained. The interval was closed with 2-0 Vicryl suture. The skin was then closed with 2-0 Vicryl and trish. A Silverlon dressing was placed and the arm was rested in a regular arm sling. She was then extubated and transferred to a hospital bed. She taken to the postanesthesia care unit in stable condition. She tolerated the procedure well. Juan Gomez PA-C, was present for the entire procedure. He was critical for patient positioning, prepping, draping, retraction exposure, wound closure and application of sterile dressing. I attest to the content of the Intraoperative Record and any orders documented therein. Any exceptions are noted below.
[2020-06-15] MEDS ORDERED: SUGAMMADEX SODIUM 200 MG/2 ML VIAL IV ONE (12:07)
[2020-06-15] MEDS ORDERED: PHARMACY GLYCEMIC MGMT CONSULT PRN (12:48)
[2020-06-15] MEDS ORDERED: LABETALOL HCL IV 5 MG/ML 20ML IV ONE (13:09)
--- NOTE | 2020-06-15 13:23 | XRay Report ---
XR shoulder LT min 2V routine HISTORY: 69 years-old Female Post shoulder surgery left shoulder total joint arthroplasty COMPARISON: Chest radiograph 05/19/2020, MRI left shoulder 04/22/2020 TECHNIQUE: 2 views of the left shoulder FINDINGS: Left shoulder total joint arthroplasty demonstrates satisfactory alignment. No definite acute fractur e or unexpected opaque foreign body. Expected postoperative soft tissue swelling and deep tissue air with overlying skin trish. On the AP internal rotation image there is an indeterminate linear 2.6 x 0.3 cm structure overlying the medial proximal humeral diaphysis which possibly may be external to t he patient. This finding is not corroborated on the scapular Y view. IMPRESSION: Satisfactory alignment of the left shoulder total joint arthroplasty. ACT 112: Negative or not required by law. The above report was generated using voice recognition software. It may contain grammatical, syntax o r spelling errors. Electronically signed by: Luis Wen M.D. 06/15/2020 1:21 PM
--- NOTE | 2020-06-15 13:46 | Anesthesiology Progress Note ---
Date of Service June 15, 2020 Anesthesia Post Procedure Vital Signs Vital Signs: Temp Pulse Resp BP BP Pulse Ox 06/15/20 13:35 97.3 F L 85 20 124/59 L 92 06/15/20 13:25 84 20 113/66 93 06/15/20 13:15 86 19 117/65 92 06/15/20 13:05 84 19 104/65 92 06/15/20 12:55 97.5 F L 85 19 173/84 H 92 06/15/20 09:16 97.9 F 75 20 128/66 92 Transfer of Care Handoff Completed per policy Notes Mental Status: alert / awake / arousable and participated in evaluation Patient Amnestic to Procedure: Yes Nausea / Vomiting: adequately controlled Pain: adequately controlled Airway Patency, RR, SpO2: stable & adequate BP & HR: stable & adequate Hydration State: stable & adequate Anesthetic Complications: no major complications apparent and Pt Satisfied with anesthetic care
[2020-06-15] MEDS ORDERED: NovoLIN-N (NPH) PER UNIT CHARGE SQ ONE (14:30)
[2020-06-15] MEDS ORDERED: ALBUTEROL HFA 8 GM INHALER INH PRN (14:34)
[2020-06-15] MEDS ORDERED: LORazepam 0.5 MG TAB PO PRN (14:34)
[2020-06-15] MEDS ORDERED: NALOXONE HCL 0.4 MG/1 ML VIAL/CARP IV PRN (14:34)
[2020-06-15] MEDS ORDERED: HYDROmorphone INJ 0.5 MG/0.5 ML SYR IV PRN (14:34)
[2020-06-15] MEDS ORDERED: TOCILIZUMAB 162 MG SQ SCH (14:34)
[2020-06-15] MEDS ORDERED: MAGNESIUM HYDROXIDE SUSP 30 ML UDC PO PRN (14:34)
[2020-06-15] MEDS ORDERED: METHOTREXATE SODIUM 50 MG IM SCH (14:34)
[2020-06-15] MEDS ORDERED: bisacodyL 10 MG SUPP PR PRN (14:34)
[2020-06-15] MEDS ORDERED: METOCLOPRAMIDE HCL INJ 5 MG/ML 2 ML VIAL IV PRN (14:34)
[2020-06-15] MEDS ORDERED: SUMAtriptan succinate 6 MG/0.5 ML VIAL SC PRN (14:34)
[2020-06-15] MEDS: SODIUM CHLORIDE 0.9% 1000ML 1,000 ML IV SCH (16:02)
[2020-06-15] MEDS: INSULIN ASPART 100 UNITS/ML 3 ML PEN SC SCH ×3 (16:08→21:30)
[2020-06-15] MEDS: ACETAMINOPHEN 500 MG TAB PO SCH ×2 (16:10→21:23)
[2020-06-15] MEDS: OXYCODONE HCL IR 5 MG TAB (IMMEDIATE RELEASE) PO PRN ×2 (16:43→21:52)
[2020-06-15] MEDS: KETOROLAC TROMETHAMINE 15 MG/ML VIAL IV SCH (18:44)
[2020-06-15] MEDS: CEFAZOLIN 2000MG 2,000 MG/15 ML SYR IV SCH (18:45)
[2020-06-15] MEDS ORDERED: SENNA 8.6 MG TAB PO SCH (21:00)
[2020-06-15] MEDS ORDERED: clonazePAM 0.5 MG TAB PO SCH (21:00)
[2020-06-15] MEDS: DOCUSATE SODIUM 100 MG CAP PO SCH (21:18)
[2020-06-15] MEDS: carvediloL 6.25 MG TAB PO SCH (21:18)
[2020-06-15] MEDS: FOLIC ACID 1 MG TAB PO SCH (21:18)
[2020-06-15] MEDS: methylPREDNISolone 4 MG TAB PO SCH (21:23)
[2020-06-16] MEDS: KETOROLAC TROMETHAMINE 15 MG/ML VIAL IV SCH ×3 (00:02→10:22)
[2020-06-16] MEDS: INSULIN ASPART 100 UNITS/ML 3 ML PEN SC SCH ×3 (00:03→08:52)
[2020-06-16] MEDS: CEFAZOLIN 2000MG 2,000 MG/15 ML SYR IV SCH (01:13)
[2020-06-16] MEDS: ACETAMINOPHEN 500 MG TAB PO SCH (04:46)
[2020-06-16] MEDS: SODIUM CHLORIDE 0.9% 1000ML 1,000 ML IV SCH (04:57)
[2020-06-16 06:16] LABS: Basophils # (auto) 0.01 K/uL (0-0.2); Basophils % (auto) 0.1 %; Hematocrit (blood only) 42.7 % (37-47); Immature Granulocytes # (auto) 0.07 K/uL (0.00-0.02); Immature Granulocytes % (auto) 0.4 %; Lymphocytes # (auto) 0.82 K/uL (1.2-3.4); Lymphocytes % (auto) 5.1 %; Mean Corpuscular Hemoglobin 31.7 pg (25-34); Mean Corpuscular Hgb Conc 30.4 g/dL (32-36); Mean Corpuscular Volume 104.1 fL (80-100); Mean Platelet Volume 9.7 fL (7.4-10.4); Monocytes # (auto) 0.92 K/uL (0.11-0.59); Monocytes % (auto) 5.7 %; Neutrophils # (auto) 14.31 K/uL (1.4-6.5); Neutrophils % (auto) 88.7 %; Platelet Count 192 K/uL (130-400); RDW Coefficient of Variation 15.1 % (11.5-14.5); RDW Standard Deviation 57.9 fL (36.4-46.3); White Blood Count 16.13 K/uL (4.8-10.8)
[2020-06-16 06:46] LABS: BUN Creatinine Ratio 20.6 (10-20); Calcium 8.3 mg/dl (8.5-10.1); Creatinine Clr Calc Pharmacy 57.4 ml/min; Est GFR (African American) 54.9; Est GFR (Non-African American) 47.3
--- NOTE | 2020-06-16 07:04 | Orthopedic Progress Note ---
Date of Service June 16, 2020 Assessment & Plan (1) Status post reverse arthroplasty of left shoulder: Overall she is doing very well. She is not having much pain in the left shoulder. She will be seen by physical therapy today for ambulation and range of motion exercises. She can be discharged home later today. She will follow- up with orthopedics in 2 weeks. Present on Admission?: No Admission and Anticipated Discharge Date Admission Date: June 15, 2020 Darío Morelos was seen and examined at bedside this morning. Overall she is doing well. She is not having much pain in the left shoulder. She was able to get some sleep last night. She has no complaints. Physical Exam Musculoskeletal: On physical examination of the left shoulder, the dressing is clean and dry. She is wearing her sling as instructed. Her radial, median, and ulnar nerves are checked and intact at her wrist. Her axillary nerve was not checked yet. Results & Data ([facility]) Vital Signs (Past 12 Hours) Vital Signs Temp Pulse Resp BP Pulse Ox 06/16/20 02:52 36.7 C 84 16 105/64 94 06/15/20 23:04 37.1 C 94 H 18 111/68 91 06/15/20 20:23 36.4 C L 91 H 18 98/60 L 92 Laboratory Results H & H 05/19/20 06/16/20 Range/Units 15:41 05:05 Hgb 15.8 13.0 (12.0-16.0) g/dL Hct 47.8 H 42.7 (37-47) % Coagulation 05/19/20 Range/Units 15:41 INR 1.0 (0.9-1.1) Diagnostic Findings Postoperative x-rays of the left shoulder show the prosthesis to be in anatomic alignment without any evidence of fracture, dislocation, or loosening. PG Care Time/CCT Total # of Minutes Spent Total Time Spent with Patient: Total time spent is greater than 50% in coordination of care (as documented) at patient's floor/unit and/or counseling patient: Coding Level of Care Code None Diagnoses Status post reverse arthroplasty of left shoulder Z96.612
--- NOTE | 2020-06-16 07:05 | Discharge Summary ---
Date of Service June 16, 2020 Admission HPI Per Admitting Provider Tamy is a pleasant 69-year-old female who I did a right reverse shoulder arthroplasty on 2012. She did well with that. Unfortunate she has now been dealing with left shoulder pain. Her shoulder is keeping her up at night. She has trouble doing activities away from her body. She is having trouble using her walker because of her left shoulder. She recently had a left ankle fusion and has been recovering from that. MRI of her shoulder shows a large retracted rotator cuff tear. There is also some evidence of rheumatoid arthritis. After failing conservative treatment, including multiple injections, she has elected to proceed with a left reverse shoulder arthroplasty. Principal Diagnosis Left reverse shoulder arthroplasty Discharge Data Allergies Allergy/AdvReac Type Severity Reaction Status Date / Time No Known Allergies Allergy Unknown ` Verified 06/15/20 09:15 Consultations 06/15/20 14:34 Consult Case Management - Discharge Planning Routine Procedures Performed Operation Date: 06/15/20 10:55 Actual Procedures p Left Reverse Total Shoulder Arthroplasty(Left) - Juan Alatorre DO Hospital Course (1) Status post reverse arthroplasty of left shoulder: On June 15, 2020 Tamy arrived at [facility] and underwent a left reverse shoulder arthroplasty without complication. She had a general anesthetic and a left interscalene nerve block. Postoperatively she was placed in an arm sling and transferred to the general orthopedic floors. Her hospital course was uneventful. On postop day #1 her H&H was stable and her pain was well controlled. She was able to participate well with physical therapy doing ambulation and range of motion exercises. She was then discharged home. She will follow-up with orthopedics in 2 weeks. Total Time Total Time Spent Total Time Spent (In Minutes): 20 Discharge Plan Discharge Items Patient Disposition: Home - Home Health Services Reason For Visit: Left Shoulder Degenerative Joint Disease Discharge Diagnosis: Left reverse shoulder replacement Activity: As commented below Non-emergency contact: Surgeon Call non-emergency contact if: your wound has increased redness and your wound has increased drainage Follow-up/Referrals: Hallie Ordonez D.O. [Primary Care Provider] - Diet: Carb Consistent or DM2 Addtl Attending Provider Instructions: Activity and Therapy Recommendations: * If you are using [facility] then therapy will be provided at your home until they feel you have accomplished all of your goals. * If you are using [facility] then Physical Therapy will be provided until they feel you are ready to start Outpatient Physical Therapy. * If you are not using home therapy then Outpatient Physical Therapy should start about 3-5 days from your day of surgery. Therapy will last about 8-12 weeks * Wear your sling for 3 weeks, unless otherwise instructed. You may remove your sling to shower and to dress, but otherwise, you should be in your sling at all times, including while sleeping * The shoulder replacement is very stable and you can use your hand while in the sling * You were shown a series of exercises in the hospital. Do these exercises daily including the exercises you were shown in physical therapy. Medications: * Narcotic You will likely be sent home from the hospital with a prescription for the narcotic pain medication that worked best throughout your stay. * Other medications may be prescribed for specific circumstances. If you have any questions, please call the office at . * Resume previous home medications unless otherwise instructed Dressing Care: Leave the Silverlon dressing in place for 7 days. After 7 days you may remove the dressing. If the incision is not draining then you may leave the trish open to air. If there is a little bit of drainage or if the trish are getting stuck on your clothing then cover the incision with a dry dressing. The trish will be removed at your 2 week follow-up appointment. Showering: You may shower with the Silverlon dressing in place. Do not let the shower spray hit the dressing directly. Pat the Silverlon dressing dry. If the dressing becomes wet underneath, then simply remove the dressing. Keep the incision dry until you are 7 days out from the day of surgery. After 7 days you may remove the Silverlon dressing and shower with the trish exposed. Let soapy water run over the trish and pat them dry. Do not scrub or soak the incision. Things To Watch For: * Drainage from the incision site that occurs more than one week after your surg ralph. * Increased redness at the incision site. * Fever above 102 degrees Fahrenheit. * Unusual chest pain or shortness of breath. * Call [facility] at with any of the above problems Follow-Up Visit: Follow-up with Dr. Alatorre's PA (Juan Gomez) 2-3 weeks after your day of surgery. He will remove your trish and answer any questions. If you have any additional questions or concerns, Dr Alatorre is usually in the office at the same time and will be available An appointment was probably scheduled when you signed-up for surgery in the [facility]. If you have any questions call More detailed instructions as well as Frequently Asked Questions were provided in a folder by our office when you signed-up for surgery. Please review these instructions when you get home. If you have any further questions or concerns, please feel free to call the office at [phone] Pending Studies at Discharge: No Stand-Alone Forms: My [employer], Smoking Cessation Medications and DC Order Prescriptions: New oxycodone 5 mg tablet 5 mg PO Q6H PRN (Reason: pain) Qty: 40 RF: 0 Continued pregabalin [Lyrica] 150 mg capsule 150 mg PO QAM RF: 0 Actemra 162 mg/0.9 mL syringe 162 mg subcut MONTHLY RF: 0 albuterol sulfate [Ventolin HFA] 90 mcg/actuation HFA aerosol inhaler 2 puffs INH Q6H PRN (Reason: SOB) RF: 0 leucovorin calcium 5 mg tablet 5 mg PO QAM RF: 0 estradiol 0.01 % (0.1 mg/gram) cream 1 g PV DAILY Qty: 42.5 RF: 11 methylprednisolone 4 mg tablet 4 mg PO BID RF: 0 amlodipine 10 mg tablet 10 mg PO QAM RF: 0 benztropine 1 mg tablet 1 mg PO QAM RF: 0 carvedilol [Coreg] 6.25 mg tablet 6.25 mg PO BID RF: 0 folic acid 1 mg tablet 1 mg PO BID RF: 0 metformin 500 mg tablet 500 mg PO BID RF: 0 glipizide 5 mg tablet 5 mg PO QAM RF: 0 modafinil [Provigil] 200 mg tablet 200 mg PO QAM RF: 0 sumatriptan succinate 6 mg/0.5 mL cartridge 6 mg SQ DAILY PRN (Reason: MIGRAINES) RF: 0 celecoxib [Celebrex] 200 mg Capsule 200 mg PO BID RF: 0 clonazepam [Klonopin] 0.5 mg Tablet 0.5 mg PO HS RF: 0 methotrexate sodium 25 mg/mL Solution 50 mg IM UD RF: 0 lorazepam 0.5 mg Tablet 0.5 mg PO TID PRN (Reason: Anxiety) RF: 0 lidocaine [Lidoderm] 5 % Adhesive Patch,Medicated 1 patch TOPICAL DAILY PRN (Reason: Pain) RF: 0 furosemide 20 mg Tablet 20 mg PO QAM RF: 0 vitamin B complex Capsule 1 cap PO HS RF: 0 escitalopram oxalate 20 mg Tablet 20 mg PO QAM RF: 0 aripiprazole [Abilify] 5 mg Tablet 5 mg PO QAM RF: 0 cholecalciferol (vitamin D3) [Vitamin D3] 25 mcg (1,000 unit) Tablet,Chewable 25 mcg PO QAM RF: 0 [facility] 7,160 unit- 113 mg-1 mg Tablet 1 tab PO QAM RF: 0 nitrofurantoin macrocrystal 50 mg Capsule 50 mg PO QAM RF: 0 Discontinued hydrocodone-acetaminophen 10-325 mg Tablet 1 tab PO QID PRN (Reason: Pain) RF: 0 Discharge Orders: Discharge Order (Routine); Ordered 06/16/20 Ordered By: Juan Kirkpatrick/Other Patient Handouts: Managing Type 2 Diabetes Admission Data Admit Date/Time: 06/15/20 12:18 Attending Provider: Juan Alatorre Admit Provider: Juan Alatorre Primary Care Provider: Hallie Ordonez Coding Level of Care Code D/C Day Management <30 mins Diagnoses Status post reverse arthroplasty of left shoulder Z96.612
[2020-06-16] MEDS: OXYCODONE HCL IR 5 MG TAB (IMMEDIATE RELEASE) PO PRN (07:31)
[2020-06-16] MEDS: DOCUSATE SODIUM 100 MG CAP PO SCH (07:32)
[2020-06-16] MEDS: methylPREDNISolone 4 MG TAB PO SCH (07:33)
[2020-06-16] MEDS: FOLIC ACID 1 MG TAB PO SCH (07:34)
[2020-06-16] MEDS: carvediloL 6.25 MG TAB PO SCH (07:34)
[2020-06-16] MEDS ORDERED: MULTIVITAMIN TAB PO SCH (09:00)
[2020-06-16] MEDS ORDERED: ESCITALOPRAM OXALATE 20 MG TAB PO SCH (09:00)
[2020-06-16] MEDS ORDERED: modafiniL 100 MG TAB PO SCH (09:00)
[2020-06-16] MEDS ORDERED: PREGABALIN 150 MG CAP PO SCH (09:00)
[2020-06-16] MEDS ORDERED: AMLODIPINE BESYLATE 5 MG TAB PO SCH (09:00)
[2020-06-16] MEDS ORDERED: BENZTROPINE MESYLATE 1 MG TAB PO SCH (09:00)
[2020-06-16] MEDS ORDERED: LEUCOVORIN CALCIUM 5 MG TAB PO SCH (09:00)
[2020-06-16] MEDS ORDERED: ARIPiprazole 5 MG TAB PO SCH (09:00)
[2020-06-16] MEDS ORDERED: ESTRACE VAG CREAM 0.01% 42.5 GM PV SCH (09:00)
[2020-06-16] MEDS ORDERED: nitrofurantoin macrocrystaL 50 MG CAP PO SCH (09:00)
[2020-06-16] MEDS ORDERED: FUROSEMIDE 20 MG TAB PO SCH (09:00)
[2020-06-19] MEDS ORDERED: METHOTREXATE SODIUM IM SCH (09:00)
== END 2020-06-16 11:08 | disposition home health service (06) | DRG 483 ==
LOC: ASU 08:46 → 3E 12:18